=== PATIENT | female | born 1950 | race Two or more races ===

== ENCOUNTER 2016-11-06 19:09 | Inpatient (IN) | payer MEDICAID, MEDICARE ==
[~2016-11-06] VITALS: Ht 165.1 cm; Wt 83.9 kg
--- NOTE | 2016-11-06 19:20 | NUR ---
PT A/OX4 BREATHING EFFORTLESSLY ON ROOM AIR, PT C/O MIDSTERNAL CP X 3 HOURS, PT STATES IT WAS NON PROVOKED, PT WAS GIVEN 162MG OF ASPIRIN BY EMS PRIOR TO ARRIVAL, PT HAS AN IV PLACED PRIOR TO ARRIVAL, EKG DONE, PT ON MONITOR IN NASRAWMD Anselmo MADE AWARE WILL CONTINUE TO MONITOR.
[2016-11-06] MEDS ORDERED: MORPHINE SULFATE INJ 4 MG/ML DISP.SYRIN ONE (19:30)
[2016-11-06] MEDS ORDERED: MORPHINE SULFATE INJ 2 MG/ML DISP.SYRIN IV ONE (19:30)
[2016-11-06] MEDS ORDERED: LABETALOL 20 MG/4 ML VIAL ONE (19:30)
[2016-11-06] MEDS ORDERED: LABETALOL 20 MG/4 ML VIAL IV ONE (19:30)
[2016-11-06] MEDS ORDERED: ONDANSETRON HCL/PF 4 MG/2 ML VIAL ONE (19:39)
--- NOTE | 2016-11-06 19:54 | NUR ---
CALLED NURSING SUP. FOR TELE BED
[2016-11-06] MEDS ORDERED: ONDANSETRON HCL/PF 4 MG/2 ML VIAL IV ONE (20:00)
[2016-11-06 20:07] LABS: BASOPHILS # (AUTO) 0.1 /CMM (0.0-0.2); BASOPHILS % (AUTO) 1.1 % (0.0-2.0); EOSINOPHILS # (AUTO) 0.2 /CMM (0.0-0.7); EOSINOPHILS % (AUTO) 3.9 % (0.0-6.0); HEMATOCRIT 36 % (33-45); HEMOGLOBIN 12.2 g/dL (11.5-14.8); LYMPHOCYTES # (AUTO) 1.4 /CMM (0.8-4.8); LYMPHOCYTES % (AUTO) 22.6 % (20.0-44.0); MEAN CORPUSCULAR HEMOGLOBIN 30 PG (26.0-33.0); MEAN CORPUSCULAR HGB CONC 34 g/dl (31.0-36.0); MEAN CORPUSCULAR VOLUME 87 fL (82-100); MONOCYTES # (AUTO) 0.4 /CMM (0.1-1.30); MONOCYTES % (AUTO) 5.7 % (2.0-12.0); NEUTROPHILS # (AUTO) 4.2 /CMM (1.8-8.9); NEUTROPHILS % (AUTO) 66.7 % (43.0-81.0); PLATELET COUNT (AUTO) 200 /CMM (150-450); RDW COEFFICIENT OF VARIATION 12.9 (11.5-15.0); RED BLOOD CELL COUNT(AUTO) 4.09 MIL/uL (4.0-5.2); WHITE BLOOD COUNT (AUTO) 6.3 K/uL (4.3-11.0)
[2016-11-06 20:21] LABS: CALCIUM, SERUM 8.7 mg/dL (8.5-10.1); CREATININE 1.8 mg/dL (0.6-1.3); POTASSIUM 4.7 mmol/L (3.5-5.1)
[2016-11-06 20:26] LABS: INR 0.9 (0.87-1.13); PROTHROMBIN TIME 9.6 SECS (9.5-12.7)
[2016-11-06 20:28] LABS: ALBUMIN 2.8 g/dL (3.4-5.0); BILIRUBIN,DIRECT 0.1 mg/dL (0.0-0.2); BILIRUBIN,TOTAL 0.1 mg/dL (0.2-1.0); TOTAL PROTEIN, SERUM 6.4 g/dL (6.4-8.2)
[2016-11-06 20:31] LABS: TROPONIN I 0.195 ng/mL (0.00-0.056)
--- NOTE | 2016-11-06 20:45 | NUR ---
EPIC PAGED, BACKPACKERS MANAGER
--- NOTE | 2016-11-06 22:09 | NUR ---
TELE/RN NOTES NEW ADMITTED PATIENT IS A 66 YO FEMALE, BOLIVIAN SPEAKING BUT CAN SPEAK ARABIC, ALERT, ORIENTED X2. ABLE TO VERBALIZE NEEDS, AMBULATORY WITH ASSISTANCE. CAME FROM HOME AND ARRIVED AT THE ER DUE TO REPORTED CHESTPAIN AT 1600 MIDSTERNAL CP X3 WITH ELEVATED HTN OF [phone].WILL CALL MD FOR ORDER AND PROVIDE CARE. ON TELE AT SR. REPORTED B/P AND CHECKED 182/81. COMPLAIN OF CHEST PAIN.
[2016-11-06] MEDS ORDERED: LISI40TA4 PO (22:27)
[2016-11-06] MEDS ORDERED: ACETAMINOPHEN 325 MG TABLET PO PRN (22:30)
[2016-11-06] MEDS ORDERED: ONDANSETRON HCL/PF 4 MG/2 ML VIAL IVP PRN (22:30)
[2016-11-06] MEDS ORDERED: ZOLPIDEM TARTRATE 5 MG TABLET PO PRN (22:30)
[2016-11-06] MEDS ORDERED: MAGNESIUM HYDROXIDE 30 ML UDC PO PRN (22:30)
[2016-11-06] MEDS ORDERED: ENOXAPARIN SODIUM 40 MG/0.4 ML DISP.SYRIN SQ SCH (22:30)
[2016-11-06] MEDS ORDERED: Z GUARD REMEDY 2 OZ OINT TP PRN (22:30)
[2016-11-06] MEDS ORDERED: MAG HYDROX/AL HYDROX/SIMETH 30 ML UDC PO PRN (22:30)
[2016-11-06] MEDS ORDERED: CARV25TA2 PO (22:43)
[2016-11-06] MEDS ORDERED: FLUT1DIS3 IH (22:43)
[2016-11-06] MEDS ORDERED: ASPI81TA2 PO (22:48)
[2016-11-06] MEDS ORDERED: HYDROCODONE/APAP 5/325MG 1 EACH TABLET ONE (23:27)
[2016-11-06] MEDS: HYDROCODONE/APAP 5/325MG 1 EACH TABLET PO PRN (23:35)
--- NOTE | 2016-11-06 23:35 | NUR ---
TELE/RN NOTES PATIENT REPORTED PAIN LEVEL OF 4/10 ON LEFT SIDE OF CHEST. NORCO 5/325 GIVEN. MONITORED FOR EFFECTIVENESS.
[2016-11-06 23:44] VITALS: BP 153/76
[2016-11-07] VITALS (7 sets, daily range): BP systolic 122–157; BP diastolic 58–74
--- NOTE | 2016-11-07 01:22 | NUR ---
TELE/RN NOTES TELE READING AT SINUS BRADYCARDIA 56 WHILE PATIENT IS SLEEPING. NO S/S OF SOB OR DISTRESS. WITH OXYGEN VIA NC AT 2L FOR COMFORT.
[2016-11-07] MEDS ORDERED: MORPHINE SULFATE INJ 2 MG/ML DISP.SYRIN ONE (02:13)
[2016-11-07] MEDS: MORPHINE SULFATE INJ 2 MG/ML DISP.SYRIN IV PRN ×2 (02:20→19:28)
--- NOTE | 2016-11-07 02:29 | NUR ---
TELE/RN NOTES /MD MADE ROUNDS. PATIENT REPORTED PAIN OF 7/10 HEAD PAIN. /CHEST MD ORDER TO GIVE PRN MORPHINE INJ 2MG/1ML. MONITORING FOR EFFECTIVENESS.
[2016-11-07] MEDS ORDERED: LORAZEPAM 0.5 MG TABLET PO PRN (02:30)
--- NOTE | 2016-11-07 03:33 | NUR ---
TELE/RN NOTES RECEIVED CRITICAL LAB RESULT OF TROPONIN AT 0.793. LEFT MESSAGE AND AWAITING FOR MD RETURN CALL.LAB REPORTED BY JAXON.
--- NOTE | 2016-11-07 03:36 | NUR ---
TELE/RN NOTES NO NEW MD ORDER RECEIVED WITH REPORTED CRITICAL LEVEL TROPONIN OF 0.793 LEVEL.
--- NOTE | 2016-11-07 06:11 | NUR ---
TELE/RN CLOSING NOTES PATIENT IN BED. ABLE TO SLEEP 5 TO 6 HOURS. MONITORED FOR PAIN AND ADMINISTERED PAIN MEDICATION. NO S/S OF DISCOMFORT OR DISTRESS OBSERVED AND VERBALIZED. MD MADE ROUNDS. CALL LIGHTS WITHIN REACH. PROVIDE FLUIDS. TELE READING WHILE ASLEEP AT SINUS HANH IN 50'S. ON 2 L OXYGEN VIA NC. WILL ENDORSE TO AM RN FOR CAPO.
--- NOTE | 2016-11-07 07:49 | NUR ---
AM RN NOTES RECEIVED PT IN STABLE CONDITION, SLEEPING COMFORTABLY EASY TO AWAKE, NO SOB OR DISTRESS NOTED, NO PAIN OR DISCOMFORT AT THIS TIME, WILL MONITOR.
[2016-11-07] MEDS: FLUTICASONE/SALMETEROL DISKUS IH SCH ×2 (08:33→16:33)
[2016-11-07] MEDS: PANTOPRAZOLE 40 MG TABLET.DR PO SCH (08:34)
[2016-11-07] MEDS: NICOTINE PATCH (21MG) 21 MG PATCH.TD24 TD SCH (08:34)
[2016-11-07] MEDS: ASPIRIN 81 MG TAB.CHEW PO SCH (08:34)
[2016-11-07] MEDS: CARVEDILOL 12.5 MG TABLET PO SCH ×2 (08:35→16:33)
[2016-11-07] MEDS ORDERED: LISINOPRIL (20MG) 20 MG TABLET PO SCH (09:00)
[2016-11-07 09:10] LABS: BASOPHILS # (AUTO) 0.1 /CMM (0.0-0.2); BASOPHILS % (AUTO) 1.1 % (0.0-2.0); EOSINOPHILS # (AUTO) 0.2 /CMM (0.0-0.7); EOSINOPHILS % (AUTO) 4.2 % (0.0-6.0); HEMATOCRIT 33 % (33-45); HEMOGLOBIN 11.1 g/dL (11.5-14.8); LYMPHOCYTES # (AUTO) 1.8 /CMM (0.8-4.8); LYMPHOCYTES % (AUTO) 30.6 % (20.0-44.0); MEAN CORPUSCULAR HEMOGLOBIN 29 PG (26.0-33.0); MEAN CORPUSCULAR HGB CONC 33 g/dl (31.0-36.0); MEAN CORPUSCULAR VOLUME 88 fL (82-100); MONOCYTES # (AUTO) 0.4 /CMM (0.1-1.30); MONOCYTES % (AUTO) 6.4 % (2.0-12.0); NEUTROPHILS # (AUTO) 3.3 /CMM (1.8-8.9); NEUTROPHILS % (AUTO) 57.7 % (43.0-81.0); PLATELET COUNT (AUTO) 192 /CMM (150-450); RDW COEFFICIENT OF VARIATION 13.5 (11.5-15.0); RED BLOOD CELL COUNT(AUTO) 3.81 MIL/uL (4.0-5.2); WHITE BLOOD COUNT (AUTO) 5.7 K/uL (4.3-11.0)
[2016-11-07 09:30] LABS: CALCIUM, SERUM 8.2 mg/dL (8.5-10.1); CREATININE 1.8 mg/dL (0.6-1.3); MAGNESIUM 1.7 mg/dL (1.8-2.4); POTASSIUM 4.8 mmol/L (3.5-5.1)
[2016-11-07] MEDS: ATORVASTATIN 10 MG TABLET PO SCH (09:36)
[2016-11-07] MEDS: ENOXAPARIN SODIUM 80 MG/0.8 ML DISP.SYRIN SQ SCH (09:42)
[2016-11-07] MEDS: HYDROCODONE/APAP 5/325MG 1 EACH TABLET PO PRN ×2 (09:45→14:13)
[2016-11-07 09:51] LABS: THYROID STIMULATING HORMONE 1.674 uIU/mL (0.358-3.74)
[2016-11-07] MEDS ORDERED: IV NS 0.9% 1,000 ML IV ONE (10:30)
[2016-11-07] MEDS ORDERED: IV SET PRIMARY PUMP SET 1 EA INFUS.SET MC ONE (10:53)
[2016-11-07] MEDS: ACETYLCYSTEINE 20% ORAL SOLN 6,000 MG/30 ML VIAL PO SCH ×2 (10:58→20:41)
[2016-11-07] MEDS ORDERED: Magnesium 1GM/D5W 100ML PREMIX 100 ML IV SCH (13:30)
[2016-11-07] MEDS ORDERED: SECONDARY IV SET 1 EA INFUS.SET MC ONE (14:05)
--- NOTE | 2016-11-07 18:38 | NUR ---
PT IN STABLE CONDITION, NO CHANGES NOTED, PAIN MEDICATIONS WITH HELP, AMBULATES TO RESTROOM, VISITED BY FAMILY WILL CONTINUE TO MONITOR. Addendum: 11/07/16 at 1842 by JOANIE PETERSON RN POSSIBLE CARDIAC CATH, SLOPE HOIST OPERATOR AWARE, AWAITING FOR TRANSFER TO ACUTE HOSPITAL.
[2016-11-07] MEDS ORDERED: ENOXAPARIN SODIUM 30 MG/0.3 ML DISP.SYRIN SQ SCH (21:00)
--- NOTE | 2016-11-07 22:32 | NUR ---
PT IN STABLE CONDITION, SLEEPING COMFORTABLY, NO SOB OR DISTRESS NOTED, PAIN MEDICATIONS WITH HELP, WILL INDORSE TO NEXT SHIFT FOR CAPO.
--- NOTE | 2016-11-07 22:45 | NUR ---
TELE/RN NOTES PT RECIEVED, A/OX4, RESTING COMFORTABLY. NO SOB OR DISTRESS NOTED OR COMPLAINTS OF PAIN AT THIS TIME. ON ROOM AIR, BREATHING EVEN AND UNLABORED. IV TO LEFT AC PATENT AND INTACT. WILL CONTINUE TO MONITOR
[2016-11-08] VITALS: BP 153/73
[2016-11-08] MEDS: MORPHINE SULFATE INJ 2 MG/ML DISP.SYRIN IV PRN ×3 (00:03→13:14)
[2016-11-08] MEDS: HYDROCODONE/APAP 5/325MG 1 EACH TABLET PO PRN (02:32)
[2016-11-08 04:00] VITALS: BP 168/78
--- NOTE | 2016-11-08 04:10 | NUR ---
TELE/RN NOTES HG=942/78 HR=67 R=18 O2=97% ON 2LPM NC TEMP=98.1F WILL CONTINUE TO MONITOR
--- NOTE | 2016-11-08 04:10 | NUR ---
TELE/RN NOTES PT EXTREMELY ANXIOUS AND COMPLAINING OF CHEST PAIN 03/10 WITH SOB. GRASPING CHEST, MOANING AND CRYING, SITTING AT THE EDGE OF THE BED, STATING "I CANNOT TAKE THIS ANYMORE, I AM SUFFERING". PT PLACE ON 02 2LPM VIA NC, PRN MORPHINE 2MG IV ADMINISTERED. PRN ATIVAN 0.5MG PO WAS GIVEN AT 0315. STAT EKG WAS ORDERED PER TRANSIT OPERATIONS SUPERVISOR. RESULTS REMAINED THE SAME FROM PREVIOUS EKG DONE ON 11/06/16. WILL CONTINUE TO MONITOR
--- NOTE | 2016-11-08 05:00 | NUR ---
TELE/RN NOTES PT ASLEEP, SITTING HIGH FOWLERS BECAUSE SHE SAYS IT HELPS WITH THE PAIN. BREATHING EVEN AND UNLABORED. NO S/S OF DISTRESS. 2LPM 02 VIA NC REMAINS ON.
[2016-11-08] MEDS: hydrALAZINE HCL 25 MG TABLET PO PRN ×2 (06:20→13:12)
--- NOTE | 2016-11-08 06:24 | NUR ---
TELE/RN NOTES RECHECKED YA=740/80, HR=67 ADMINISTERED PRN APRESOLINE 25MG PO. WILL CONTINUE TO MONITOR
[2016-11-08 06:47] LABS: BASOPHILS # (AUTO) 0.1 /CMM (0.0-0.2); BASOPHILS % (AUTO) 0.6 % (0.0-2.0); EOSINOPHILS # (AUTO) 0.1 /CMM (0.0-0.7); HEMATOCRIT 36 % (33-45); HEMOGLOBIN 12.2 g/dL (11.5-14.8); LYMPHOCYTES # (AUTO) 0.9 /CMM (0.8-4.8); LYMPHOCYTES % (AUTO) 11.4 % (20.0-44.0); MEAN CORPUSCULAR HEMOGLOBIN 29 PG (26.0-33.0); MEAN CORPUSCULAR HGB CONC 33 g/dl (31.0-36.0); MEAN CORPUSCULAR VOLUME 88 fL (82-100); MONOCYTES # (AUTO) 0.4 /CMM (0.1-1.30); MONOCYTES % (AUTO) 5.2 % (2.0-12.0); NEUTROPHILS # (AUTO) 6.4 /CMM (1.8-8.9); NEUTROPHILS % (AUTO) 81.8 % (43.0-81.0); PLATELET COUNT (AUTO) 204 /CMM (150-450); RDW COEFFICIENT OF VARIATION 13.9 (11.5-15.0); RED BLOOD CELL COUNT(AUTO) 4.14 MIL/uL (4.0-5.2); WHITE BLOOD COUNT (AUTO) 7.8 K/uL (4.3-11.0)
--- NOTE | 2016-11-08 07:10 | NUR ---
FARO DEALER NOTES RECEIVED PATIENT IN BED, AWAKE. A/O X3. ON OXYGEN AT 2L/MIN VIA NC, NO SOB NOTED. ON TELE MONITOR SINUS RHYTHM WITH BBB, PVC HR 77, DENIES CHEST PAIN. APPEARS COMFORTABLE IN BED. IV IN LEFT AC G20 PATENT AND INTACT, FLUSHES WELL. CALL LIGHT WITHIN REACH. WILL CONT TO MONITOR. PATIENT TO BE TRANSFERRED TODAY TO ANOTHER ACUTE HOSP FOR CARDIAC CATH PER REPORT.
[2016-11-08 07:16] LABS: ALBUMIN 2.9 g/dL (3.4-5.0); BILIRUBIN,TOTAL 0.3 mg/dL (0.2-1.0); CALCIUM, SERUM 8.6 mg/dL (8.5-10.1); CREATININE 1.8 mg/dL (0.6-1.3); MAGNESIUM 2.1 mg/dL (1.8-2.4); POTASSIUM 5.6 mmol/L (3.5-5.1); TOTAL PROTEIN, SERUM 6.6 g/dL (6.4-8.2)
--- NOTE | 2016-11-08 07:42 | NUR ---
TELE/RN CLOSING NOTES PT RESTING COMFORTABLY IN BED, HOB ELEVATED. EASILY AROUSABLE TO NAME. ON 2LPM O2 VIA NC, NO SOB OR DISTRESS NOTED. NO S/S OF PAIN AT THIS TIME. ON TELE MONITOR, SINUS RHYTHM WITH BBB AND PVC'S HR AT 65. MADE PT COMFORTABLE POSSIBLE THROUGHOUT SHIFT. ALL NEEDS MET AND ATTENDED TO. PT REALLY WANTS TO GO TO [facility] TODAY FOR CARDIAC CATH. STATED THAT SHE CAN NO LONGER TAKE THE PAIN. BED IN LOW/LOCKED POSITION WITH CALL LIGHT IN REACH. BED RAILS UPX2. ENDORSED TO AM SHIFT CAPO.
[2016-11-08 08:00] VITALS: BP 153/73
[2016-11-08 08:32] LABS: TROPONIN I 5.915 ng/mL (0.00-0.056)
[2016-11-08] MEDS: PANTOPRAZOLE 40 MG TABLET.DR PO SCH (08:36)
[2016-11-08] MEDS: ATORVASTATIN 10 MG TABLET PO SCH (08:36)
[2016-11-08] MEDS: NICOTINE PATCH (21MG) 21 MG PATCH.TD24 TD SCH (08:36)
[2016-11-08] MEDS: ASPIRIN 81 MG TAB.CHEW PO SCH (08:36)
[2016-11-08] MEDS: CARVEDILOL 12.5 MG TABLET PO SCH (08:37)
[2016-11-08] MEDS: FLUTICASONE/SALMETEROL DISKUS IH SCH (08:42)
[2016-11-08] MEDS: ENOXAPARIN SODIUM 80 MG/0.8 ML DISP.SYRIN SQ SCH (09:08)
[2016-11-08] MEDS ORDERED: IV NS 0.9% 1,000 ML IV PRN (09:24)
[2016-11-08] MEDS ORDERED: NITROGLYCERIN 30 GM TUBE TP SCH (09:30)
--- NOTE | 2016-11-08 09:30 | NUR ---
PATIENT LISTED ALLERGIES TO NITROGLYCERIN. PER PATIENT SHE PASSED OUT WHEN SHE TOOK NITROGLYCERIN LONG TIME AGO. RELAYED AND SPOKE TO DR. SCHNEIDER, CLARIFIED THE ORDERS. PER MD NITRO-BID OINTMENT LOWERS BLOOD PRESSURE AND CAN GIVE IT TO THE PATIENT. CALLED PHARMACY SPOKE TO MARGARITOLY TO INFORMED.
[2016-11-08] MEDS ORDERED: Hydralazine Hcl PO (09:33)
[2016-11-08] MEDS ORDERED: Lorazepam PO (09:33)
[2016-11-08] MEDS ORDERED: ENOX80DI SQ (09:33)
[2016-11-08] MEDS ORDERED: NICO1PAT28 TD (09:33)
[2016-11-08] MEDS ORDERED: ATOR10TA PO (09:33)
--- NOTE | 2016-11-08 10:27 | NUR ---
RECEIVED PHONE CALL FROM DR. CHOWDHURY, PER MD TO TRANSFER PATIENT UNDER HIS CARE. INFORMED CHARGE NURSE. REVIEWED LAB RESULT WITH DR. CHOWDHURY, ORDERED TO INCREASE IVF NS TO 100ML/HR, KAYAXALATE 60GM PO X1 FOR ELEVATED POTASSIUM, AND CHECK POTASSIUM LEVEL AT 2PM NOTED AND ACKNOWLEDGED.
[2016-11-08] MEDS: hydrALAZINE HCL 50 MG TABLET PO SCH ×2 (10:38→13:17)
[2016-11-08] MEDS ORDERED: SODIUM POLYSTYRENE SULFONATE 15 G/60 ML BOTTLE PO ONE (11:00)
--- NOTE | 2016-11-08 11:30 | NUR ---
PATIENT IS SEEN BY DR. CHOWDHURY TODAY, PER MD TO REMAIN IVF NS AT 25ML/HR.
--- NOTE | 2016-11-08 12:16 | NUR ---
REVIEWED VACCINATIONS STATUS WITH THE PATIENT. PER PATIENT SHE DID NOT RECEIVED FLU AND PNA VACCINES, AND PREFERS NOT TO HAVE IT. VACCINATIONS STATUS UPDATED.
--- NOTE | 2016-11-08 12:24 | NUR ---
KAYEXALATE NOT AVAILABLE AT THIS TIME. CALLED PHARMACY, WILL FOLLOW UP.
[2016-11-08 13:17] VITALS: BP 165/75
--- NOTE | 2016-11-08 13:24 | NUR ---
CALLED PHARMACY SPOKE TO YRIS, KAYEXALATE STILL NOT AVAILABLE. NON ADMINISTERED, PATIENT LEAVING HOSP FOR TRANSFER TO ANOTHER ACUTE HOSP FOR CARDIAC CATH.
--- NOTE | 2016-11-08 13:30 | NUR ---
CLINICAL LAB CLERK DISCHARGED PATENT HAS BEEN CLEARED FOR DISCHARGE/TRANSFERRED TO ANOTHER ACUTE HOSP BY MD AND MANAGER POOL. DISCHARGE INSTRUCTION GIVEN TO THE PATIENT, VERBALIZED UNDERSTANDING. SKIN INTACT. CALLED SPOKE TO [facility] FOR REPORT. PATIENT LEFT [facility] IN STABLE CONDITION VIA AMBULANCE. DAUGHTEREDMUND WAS INFORMED.
== END 2016-11-08 13:28 | disposition short-term general hospital (02) | DRG 190 ==
LOC: ER 19:14 → TELE 21:33
PROVIDERS: ADMIT Internal Medicine; ATTEND Internal Medicine
DX: I21.4 Non-ST elevation (NSTEMI) myocardial infarction (principal); N17.0 Acute kidney failure with tubular necrosis; I50.33 Acute on chronic diastolic (congestive) heart failure; E44.0 Moderate protein-calorie malnutrition; I13.0 Hypertensive heart and chronic kidney disease with heart failure and stage 1 through stage 4 chronic kidney disease, or unspecified chronic kidney disease; I25.10 Atherosclerotic heart disease of native coronary artery without angina pectoris; N18.9 Chronic kidney disease, unspecified; I16.0 Hypertensive urgency; D64.9 Anemia, unspecified; E66.9 Obesity, unspecified; E78.5 Hyperlipidemia, unspecified; E83.39 Other disorders of phosphorus metabolism; E87.5 Hyperkalemia; F17.200 Nicotine dependence, unspecified, uncomplicated; Z95.1 Presence of aortocoronary bypass graft; J44.9 Chronic obstructive pulmonary disease, unspecified; K21.9 Gastro-esophageal reflux disease without esophagitis; R73.9 Hyperglycemia, unspecified; Z68.30 Body mass index [BMI] 30.0-30.9, adult
CPT/HCPCS: 36415; 71010-TC; 76770-TC; 80048-TC; 80053-TC; 80061-TC; 80076-TC; 83735-TC; 84100-TC; 84439-TC; 84443-TC; 84484-TC; 85025-TC; 85730-TC; 86850-TC; 87081-TC; 93307-TC; 97001-TC; A4606; J1650; J2270; J2405; J3475; J3490; J7030; Z7610

== ENCOUNTER 2017-08-25 18:31 | Inpatient (IN) | payer MEDICAID, MEDICARE ==
[~2017-08-25] VITALS: Ht 165.1 cm; Wt 90.7 kg
[~2017-08-25 18:31] MED LIST: ASPI-1169 PO; ATOR10TA PO; CARV25TA2 PO; ENOX80DI SQ; FLUT1DIS3 IH; Hydralazine Hcl PO; LISI40TA4 PO; Lorazepam PO; NICO1PAT28 TD
--- NOTE | 2017-08-25 18:41 | NUR ---
DR CLEMENTE AT BEDSIDE FOR EVAL.
--- NOTE | 2017-08-25 18:53 | NUR ---
IV LINE STARTED BLOOD DRAWN AND SENT TO LAB.
[2017-08-25 18:59] LABS: HEMATOCRIT 30 % (33-45); HEMOGLOBIN 10.4 g/dL (11.5-14.8); MEAN CORPUSCULAR HEMOGLOBIN 32 PG (26.0-33.0); MEAN CORPUSCULAR HGB CONC 35 g/dl (31.0-36.0); MEAN CORPUSCULAR VOLUME 92 fL (82-100); PLATELET COUNT (AUTO) 208 /CMM (150-450); RED BLOOD CELL COUNT(AUTO) 3.28 MIL/uL (4.0-5.2); WHITE BLOOD COUNT (AUTO) 7.5 K/uL (4.3-11.0)
[2017-08-25] MEDS ORDERED: IPRATROPIUM NEB FS 0.5 MG/2.5 ML AMPUL.NEB NEB ONE (19:00)
[2017-08-25] MEDS ORDERED: ALBUTEROL FS 2.5 MG/0.5 ML VIAL.NEB NEB ONE (19:00)
[2017-08-25 19:13] LABS: CALCIUM, SERUM 8.8 mg/dL (8.5-10.1); CREATININE 3.5 mg/dL (0.6-1.3); POTASSIUM 5.4 mmol/L (3.5-5.1)
[2017-08-25 19:15] LABS: INR 0.88 (0.85-1.15)
[2017-08-25 19:19] LABS: ALBUMIN 2.6 g/dL (3.4-5.0); BILIRUBIN,TOTAL 0.3 mg/dL (0.2-1.0); TOTAL PROTEIN, SERUM 6.6 g/dL (6.4-8.2); TROPONIN I 0.086 ng/mL (0.00-0.056)
[2017-08-25] MEDS ORDERED: IPRATROPIUM NEB FS 0.5 MG/2.5 ML AMPUL.NEB ONE (19:20)
[2017-08-25] MEDS ORDERED: ALBUTEROL FS 2.5 MG/0.5 ML VIAL.NEB ONE (19:20)
[2017-08-25] MEDS ORDERED: ASPIRIN 325 MG TABLET PO ONE (19:30)
[2017-08-25] MEDS ORDERED: IV NS 0.9% 500 ML IV ONE (19:30)
--- NOTE | 2017-08-25 19:30 | NUR ---
RT AT BEDSIDE FOR BREATHING TREATMENT.
[2017-08-25] MEDS ORDERED: ASPIRIN 325 MG TABLET ONE (19:35)
--- NOTE | 2017-08-25 19:37 | NUR ---
CALLED DR CHOWDHURY, ON THE PHONE WITH DR CLEMENTE.
[2017-08-25 19:47] LABS: BAND % (MANUAL) 9 % (0.0-5.0); LYMPHOCYTES % (MANUAL) 13 % (16-48); MONOCYTES % (MANUAL) 6 % (0-11.0); NEUTROPHILS % (MANUAL) 72 (42-76)
--- NOTE | 2017-08-25 20:27 | NUR ---
REPORT GIVEN TO JAZMINE. PT AWAITING TRANSFER TO FLOOR.
[2017-08-25 21:30] VITALS: BP 106/69
--- NOTE | 2017-08-25 21:30 | NUR ---
RN OPENING NOTES RECEIVED PATIENT FORM ER IN STABLE CONDITION, ALERT AND ORIENTED X4, FILIPINO SPEAKING. VS STABLE. NO C/O PAIN OR DISCOMFORT AT THIS TIME. NO SOB NOTED. RESPIRATIONS EVEN AND UNLABORED. BS X4. IV ACCESS ON RIGHT AC 20 G PATENT AND INTACT, NO REDNESS OR INFILTRATION NOTED. TELE MONITOR IS IN PLACE, SR 65 BPM. SKIN CLEAN AND DRY. BED IN LOW AND LOCKED POSITION, SIDE RAILSX2. CALL LIGHT WITHIN EASY REACH. WILL CONTINUE TO MONITOR AND ASSESS DURING THE SHIFT.
[2017-08-25 22:00] VITALS: BP 108/69
[2017-08-25] MEDS ORDERED: HEPARIN SODIUM, PORCINE 5000 UNITS/1 ML VIAL ONE (22:27)
[2017-08-25] MEDS ORDERED: ONDANSETRON HCL/PF 4 MG/2 ML VIAL IV PRN (22:30)
[2017-08-25] MEDS ORDERED: ACETAMINOPHEN 325 MG TABLET PO PRN (22:30)
[2017-08-25] MEDS: IV 1/2NS 1000 ML 1,000 ML IV SCH (22:52)
[2017-08-25] MEDS: HEPARIN SODIUM, PORCINE 5000 UNITS/1 ML VIAL SQ SCH (23:01)
[2017-08-25] MEDS ORDERED: ACETAMINOPHEN 325 MG TABLET ONE (23:55)
[2017-08-26] VITALS (7 sets, daily range): BP systolic 106–139; BP diastolic 56–72
[2017-08-26] MEDS ORDERED: ISOS60TA4 PO (05:01)
[2017-08-26] MEDS ORDERED: CLOP75TA15 PO (05:01)
[2017-08-26] MEDS ORDERED: FURO-144 PO (05:01)
[2017-08-26] MEDS ORDERED: POTA20TA83 PO (05:01)
--- NOTE | 2017-08-26 06:38 | NUR ---
RN CLOSING NOTES PATIENT IS SLEEPING IN BED, EASY TO AROUSE, ALERT AND ORIENTED X4, GERMAN SPEAKING. VS STABLE. NO SOB NOTED. RESPIRATIONS EVEN AND UNLABORED. IV ACCESS ON RIGHT AC 20 G PATENT AND INTACT, INFUSING 1/2 NS AT 75 ML/HR, NO REDNESS OR INFILTRATION NOTED. TELE MONITOR IS IN PLACE, SR 67 BPM. SKIN CLEAN AND DRY. ALL NEEDS ARE MET AND MEDICATIONS GIVEN PER MD ORDER. BED IN LOW AND LOCKED POSITION, SIDE RAILSX2. CALL LIGHT WITHIN EASY REACH. WILL ENDORSE TO RN DAY SHIFT FOR CAPO.
[2017-08-26 06:45] LABS: BASOPHILS % (AUTO) 0.6 % (0.0-2.0); EOSINOPHILS # (AUTO) 0.1 /CMM (0.0-0.7); EOSINOPHILS % (AUTO) 1.7 % (0.0-6.0); HEMATOCRIT 26 % (33-45); HEMOGLOBIN 8.9 g/dL (11.5-14.8); LYMPHOCYTES # (AUTO) 1.4 /CMM (0.8-4.8); LYMPHOCYTES % (AUTO) 24.4 % (20.0-44.0); MEAN CORPUSCULAR HEMOGLOBIN 32 PG (26.0-33.0); MEAN CORPUSCULAR HGB CONC 34 g/dl (31.0-36.0); MEAN CORPUSCULAR VOLUME 93 fL (82-100); MONOCYTES # (AUTO) 0.5 /CMM (0.1-1.30); MONOCYTES % (AUTO) 8.6 % (2.0-12.0); NEUTROPHILS # (AUTO) 3.8 /CMM (1.8-8.9); NEUTROPHILS % (AUTO) 64.7 % (43.0-81.0); PLATELET COUNT (AUTO) 159 /CMM (150-450); RDW COEFFICIENT OF VARIATION 14.6 (11.5-15.0); RED BLOOD CELL COUNT(AUTO) 2.79 MIL/uL (4.0-5.2); WHITE BLOOD COUNT (AUTO) 5.8 K/uL (4.3-11.0)
[2017-08-26 07:01] LABS: CREATININE 3.2 mg/dL (0.6-1.3); POTASSIUM 5.2 mmol/L (3.5-5.1)
[2017-08-26 07:18] LABS: THYROID STIMULATING HORMONE 0.387 uIU/mL (0.358-3.74)
[2017-08-26 07:53] LABS: TROPONIN I 0.103 ng/mL (0.00-0.056)
[2017-08-26] MEDS: PANTOPRAZOLE 40 MG TABLET.DR PO SCH (07:58)
--- NOTE | 2017-08-26 08:00 | NUR ---
RN NOTES RECEIVED PATIENT IN THE BED A/O X4, PATIENT ON TELE MONITOR SR-60, V/S STABLE, PATIENT C/O STOMACHACHE, IV LINE ON RIGHT AC1/2 NS AT 75 ML/HR, ENCOURAGED TO EXPRESS FEELINGS AND CONCERNS, V/S STABLE, CALL LIGHT WITHIN TO REACH, MED COMPLIANT, CONTINUED MONITORING.
[2017-08-26] MEDS ORDERED: RANO500T3 PO (09:17)
[2017-08-26] MEDS ORDERED: ALBU2.5V38 IH (09:17)
[2017-08-26] MEDS ORDERED: EVOL140S SQ (09:23)
[2017-08-26] MEDS: CLOPIDOGREL BISULFATE 75 MG TABLET PO SCH (09:42)
[2017-08-26] MEDS: CARVEDILOL 6.25 MG TABLET PO SCH ×2 (09:43→21:49)
[2017-08-26] MEDS: HEPARIN SODIUM, PORCINE 5000 UNITS/1 ML VIAL SQ SCH ×2 (09:45→21:51)
--- NOTE | 2017-08-26 10:00 | NUR ---
RN NOTES PATIENT IN THE BED RESTING, INFUSING 1/2 NS AT 75 ML/HR, CALL LIGHT WITHIN TO REACH, PATIENT REFUSED DIZZINESS AT THIS TIME, SAFETY PRECAUTION MAINTAINED ALL THE TIME, CALL LIGHT WITHIN TO REACH, CONTINUED MONITORING.
[2017-08-26 11:08] LABS: MAGNESIUM 2.1 mg/dL (1.8-2.4); PHOSPHORUS 4.3 mg/dL (2.5-4.9)
[2017-08-26] MEDS: IV 1/2NS 1000 ML 1,000 ML IV SCH (12:55)
[2017-08-26] MEDS: MECLIZINE HCL 12.5 MG TABLET PO SCH ×2 (12:55→21:48)
--- NOTE | 2017-08-26 14:57 | NUR ---
RN NOTES NA ACUTE RESPIRATORY DISTRESS, SCHEDULED MEDICATION ADMINISTERED, ASSIST PATIENT BATHROOM, SAFETY PRECAUTION MAINTAINED WITH HELP OF ASBESTOS ABATEMENT TECHNICIAN.
--- NOTE | 2017-08-26 17:52 | NUR ---
Met with patient, she is alert, she lives alone locally in a [address]. She is ambulatory and independent with adl's. She is dependent on oxygen at home and has nebulizer due to hx of COPD. She has [facility] patient accounts specialist/provider 92hrs/month. Patient pcp is , hospital personnel director is Dr. Hoffmann both are in [place]. Patient friend or caregiver will provide ride home once discharge. Addendum: 08/26/17 at 1752 by ANALI CHO RN Amended: Links added.
[2017-08-26] MEDS: GUAIFENESIN/CODEINE 10 ML UDC PO PRN ×2 (18:40→23:58)
--- NOTE | 2017-08-26 18:40 | NUR ---
RN NOTES ADMINISTERED ROBITUSSIN 5 ML PO PRN FOR COUGH, , INFUSING 1/2 NS AT 75 ML/HR INTACT, PATIENT HAS NO RESPIRATORY DISTRESS, NO C/O PAIN AT THIS TIME, NO DIZZINESS, CALL LIGHT WITHIN TO REACH, SAFETY PRECAUTION MAINTAINED ALL THE TIME. ENDORSED ONCOMING NURSE CAPO.
--- NOTE | 2017-08-26 19:30 | NUR ---
TELERN FULLY AWAKE, NO DISCOMFORTS, STATED NO DIZZINESS AT THIS TIME. NO NEEDS ATTENDED, CLOSELY WATCHED.SR ON THE MONITOR.
--- NOTE | 2017-08-26 21:30 | NUR ---
TELERN AMBULATORY BRP, VOIDED FREELY. IVF CONTINUED, DUE MEDS ADMINISTERED. DENIES DIZZINESS, NO OTHER DISCOMFORTS MADE.
[2017-08-27] VITALS: BP 112/59
[2017-08-27 00:30] VITALS: BP 112/59
--- NOTE | 2017-08-27 00:59 | NUR ---
TELERN UNABLE TO SLEEP, REQUESTED AMBIEN 10MG PO. PLACED CALL TO DR. CHOWDHURY.
--- NOTE | 2017-08-27 01:03 | NUR ---
TELERN RETURN CALL FROM DR. CHOWDHURY, ORDERS RECEIVED.
[2017-08-27] MEDS ORDERED: ZOLPIDEM TARTRATE 10 MG TABLET ONE (01:05)
[2017-08-27] MEDS ORDERED: ZOLPIDEM TARTRATE 10 MG TABLET PO PRN (01:30)
[2017-08-27 04:00] VITALS: BP 102/59
[2017-08-27 04:25] VITALS: BP 102/59
--- NOTE | 2017-08-27 06:30 | NUR ---
[facility]ELERN [facility] WE[facility] FROM [facility]. NO OTHER COMPLAINTS MADE.
[2017-08-27] MEDS: MECLIZINE HCL 12.5 MG TABLET PO SCH ×2 (06:41→13:34)
[2017-08-27] MEDS: IV 1/2NS 1000 ML 1,000 ML IV SCH (06:41)
[2017-08-27 07:17] LABS: BASOPHILS % (AUTO) 0.5 % (0.0-2.0); EOSINOPHILS # (AUTO) 0.1 /CMM (0.0-0.7); EOSINOPHILS % (AUTO) 2.4 % (0.0-6.0); HEMATOCRIT 26 % (33-45); HEMOGLOBIN 9.1 g/dL (11.5-14.8); LYMPHOCYTES # (AUTO) 1.6 /CMM (0.8-4.8); LYMPHOCYTES % (AUTO) 28.9 % (20.0-44.0); MEAN CORPUSCULAR HEMOGLOBIN 32 PG (26.0-33.0); MEAN CORPUSCULAR HGB CONC 35 g/dl (31.0-36.0); MEAN CORPUSCULAR VOLUME 93 fL (82-100); MONOCYTES # (AUTO) 0.5 /CMM (0.1-1.30); MONOCYTES % (AUTO) 9.4 % (2.0-12.0); NEUTROPHILS # (AUTO) 3.2 /CMM (1.8-8.9); NEUTROPHILS % (AUTO) 58.8 % (43.0-81.0); PLATELET COUNT (AUTO) 178 /CMM (150-450); RDW COEFFICIENT OF VARIATION 14.4 (11.5-15.0); RED BLOOD CELL COUNT(AUTO) 2.83 MIL/uL (4.0-5.2); WHITE BLOOD COUNT (AUTO) 5.5 K/uL (4.3-11.0)
--- NOTE | 2017-08-27 07:30 | NUR ---
CUSTOMER EXPERIENCE STRATEGIST NOTES RECEIVED PATIENT IN BED EYES CLOSED, RESPONSIVE VERBAL STIMULI. NO SOB NOTED. NO ACUTE DISTRESS NOTED. BREATHING UNLABORED. IV ACCESS PATENT AND INTACT. NO REDNESS OR SWELLING NOTED. SAFETY MEASURES IN PLACE. CALL LIGHT WITHIN REACH. WILL CONTINUE TO MONITOR ACCORDINGLY.
[2017-08-27 07:35] LABS: ALBUMIN 2.2 g/dL (3.4-5.0); BILIRUBIN,TOTAL 0.2 mg/dL (0.2-1.0); CALCIUM, SERUM 8.2 mg/dL (8.5-10.1); CREATININE 2.4 mg/dL (0.6-1.3); MAGNESIUM 1.9 mg/dL (1.8-2.4); PHOSPHORUS 3.6 mg/dL (2.5-4.9); POTASSIUM 5.1 mmol/L (3.5-5.1); TOTAL PROTEIN, SERUM 5.6 g/dL (6.4-8.2)
[2017-08-27 07:43] LABS: TROPONIN I 0.123 ng/mL (0.00-0.056)
[2017-08-27 08:00] VITALS: BP 115/62
[2017-08-27] MEDS: PANTOPRAZOLE 40 MG TABLET.DR PO SCH (08:14)
[2017-08-27] MEDS ORDERED: ASPIRIN 81 MG TAB.CHEW PO SCH (09:00)
[2017-08-27 09:04] VITALS: BP 115/62
[2017-08-27] MEDS: CLOPIDOGREL BISULFATE 75 MG TABLET PO SCH (09:04)
[2017-08-27] MEDS: CARVEDILOL 6.25 MG TABLET PO SCH (09:04)
[2017-08-27] MEDS: HEPARIN SODIUM, PORCINE 5000 UNITS/1 ML VIAL SQ SCH (09:05)
[2017-08-27] MEDS ORDERED: PANT40TA2 PO (10:36)
[2017-08-27] MEDS ORDERED: MECL12.582 PO (10:36)
--- NOTE | 2017-08-27 11:00 | NUR ---
RN NOTES SEEN AND EVALUATED BY DR CHOWDHURY WITH NEW ORDERS MADE. NOTED AND CARRIED OUT.
[2017-08-27] MEDS: GUAIFENESIN/CODEINE 10 ML UDC PO PRN (13:35)
--- NOTE | 2017-08-27 15:45 | NUR ---
MEDICAL TERRITORY MANAGER NOTES PATIENT DISCHARGED WITH STABLE VS. NO SOB NOTED. NO SIGN OF ACUTE DISTRESS NOTED. BREATHING UNLABORED. ALL DISCHARGE INSTRUCTIONS GIVEN INCLUDING FOLLOW UP WITH MD AND NEW PRESCRIPTIONS, VERBALIZED UNDERSTANDING. ALL BELONGINGS ACCOUNTED FOR INCLUDING HOME MEDICATIONS GIVEN TO THE PATIENT. IV ACCESS REMOVED ON THE LEFT WRIST, NO BLEEDING OR SWELLING NOTED. PICKED UP BY THE DAUGHTER VIA PRIVATE CAR , WHEELED TO THE LOBBY ACCOMPANIED BY RN AND PREDATORY HUNTER ASSISTED TO THE CAR.
== END 2017-08-27 15:45 | disposition home or self-care (01) | DRG 111 ==
LOC: ER 18:39 → TELE 20:46 → MED 08-27 10:48
PROVIDERS: ADMIT Internal Medicine; ATTEND Internal Medicine
DX: H81.399 Other peripheral vertigo, unspecified ear (principal); I21.4 Non-ST elevation (NSTEMI) myocardial infarction; N17.0 Acute kidney failure with tubular necrosis; I50.9 Heart failure, unspecified; I13.0 Hypertensive heart and chronic kidney disease with heart failure and stage 1 through stage 4 chronic kidney disease, or unspecified chronic kidney disease; E44.0 Moderate protein-calorie malnutrition; N18.4 Chronic kidney disease, stage 4 (severe); E87.5 Hyperkalemia; Z95.1 Presence of aortocoronary bypass graft; I12.9 Hypertensive chronic kidney disease with stage 1 through stage 4 chronic kidney disease, or unspecified chronic kidney disease; I25.10 Atherosclerotic heart disease of native coronary artery without angina pectoris; Z87.891 Personal history of nicotine dependence; Z79.899 Other long term (current) drug therapy; Z79.82 Long term (current) use of aspirin; Z88.8 Allergy status to other drugs, medicaments and biological substances; Z79.01 Long term (current) use of anticoagulants; Z98.61 Coronary angioplasty status; H02.60 Xanthelasma of unspecified eye, unspecified eyelid; E78.5 Hyperlipidemia, unspecified; D63.1 Anemia in chronic kidney disease; I25.2 Old myocardial infarction; J44.9 Chronic obstructive pulmonary disease, unspecified; K21.9 Gastro-esophageal reflux disease without esophagitis
CPT/HCPCS: 36415; 71045-TC; 80048-TC; 80053-TC; 80061-TC; 80076-TC; 82272-TC; 82306; 82728-TC; 83540-TC; 83735-TC; 83880; 84100-TC; 84439-TC; 84443-TC; 84484-TC; 85025-TC; 85730-TC; 87081-TC; 93307-TC; A4606; J1644; J3490; J7040; J7042; J8597; Z7610

== ENCOUNTER 2017-09-24 07:48 | Inpatient (IN) | payer MEDICAID, MEDICARE ==
[~2017-09-24] VITALS: Ht 157.5 cm; Wt 89.8 kg
[~2017-09-24 07:48] MED LIST changes: +ALBU2.5V38 IH; -ATOR10TA PO; +CLOP75TA15 PO; -ENOX80DI SQ; +EVOL140S SQ; -FLUT1DIS3 IH; -Hydralazine Hcl PO; +ISOS60TA4 PO; -LISI40TA4 PO; -Lorazepam PO; +MECL12.582 PO; -NICO1PAT28 TD; +PANT40TA2 PO; +RANO500T3 PO
--- NOTE | 2017-09-24 07:48 | NUR ---
BIB RA 39 FROM HOME, NOT ACTING RIGHT PER FAMILY SINCE 10 PM LAST NIGHT. BS 107. PLACED ON MONITOR AWAITING MD ORDER
[2017-09-24] MEDS ORDERED: IV NS 0.9% 500 ML BAG IV ONE (08:00)
[2017-09-24 08:11] LABS: BASOPHILS % (AUTO) 0.6 % (0.0-2.0); EOSINOPHILS # (AUTO) 0.2 /CMM (0.0-0.7); EOSINOPHILS % (AUTO) 1.9 % (0.0-6.0); HEMATOCRIT 34 % (33-45); HEMOGLOBIN 11.5 g/dL (11.5-14.8); LYMPHOCYTES # (AUTO) 1.3 /CMM (0.8-4.8); LYMPHOCYTES % (AUTO) 16.1 % (20.0-44.0); MEAN CORPUSCULAR HEMOGLOBIN 32 PG (26.0-33.0); MEAN CORPUSCULAR HGB CONC 34 g/dl (31.0-36.0); MEAN CORPUSCULAR VOLUME 93 fL (82-100); MONOCYTES # (AUTO) 0.4 /CMM (0.1-1.30); MONOCYTES % (AUTO) 4.5 % (2.0-12.0); NEUTROPHILS # (AUTO) 6.3 /CMM (1.8-8.9); NEUTROPHILS % (AUTO) 76.9 % (43.0-81.0); PLATELET COUNT (AUTO) 251 /CMM (150-450); RDW COEFFICIENT OF VARIATION 14.1 (11.5-15.0); RED BLOOD CELL COUNT(AUTO) 3.65 MIL/uL (4.0-5.2); WHITE BLOOD COUNT (AUTO) 8.2 K/uL (4.3-11.0)
[2017-09-24] MEDS ORDERED: PANT40TA2 PO (08:16)
[2017-09-24 08:21] LABS: CREATININE 2.1 mg/dL (0.6-1.3); POTASSIUM 5.9 mmol/L (3.5-5.1)
[2017-09-24 08:27] LABS: ALBUMIN 3.1 g/dL (3.4-5.0); BILIRUBIN,DIRECT 0.1 mg/dL (0.0-0.2); BILIRUBIN,TOTAL 0.3 mg/dL (0.2-1.0); TOTAL PROTEIN, SERUM 7.1 g/dL (6.4-8.2)
[2017-09-24 08:29] LABS: TROPONIN I 0.102 ng/mL (0.00-0.056)
[2017-09-24 08:35] LABS: INR 0.9 (0.87-1.13)
--- NOTE | 2017-09-24 08:50 | NUR ---
PT TAKEN TO CT
--- NOTE | 2017-09-24 09:50 | NUR ---
URINE SAMPLE COLLECTED SENT TO LAB
[2017-09-24 09:55] LABS: APPEARANCE,URINE CLEAR (CLEAR); BILIRUBIN,URINE NEGATIVE (NEGATIVE); BLOOD, URINE TRACE-INTA Ery/uL (NEGATIVE); COLOR,URINE YELLOW (YELLOW); KETONES,URINE NEGATIVE (NEGATIVE); LEUKOCYTE ESTERASE ,URINE NEGATIVE (NEGATIVE); NITRITE, URINE NEGATIVE (NEGATIVE); PROTEIN,URINE 1+ mg/dl (NEGATIVE); UGLUCOSE NEGATIVE (NEGATIVE); UROBILINOGEN,URINE 0.2 EU/dL (0.2)
[2017-09-24 10:01] LABS: BACTERIA,URINE Rare /HPF (None Seen); RBC,URINE 0-2 /HPF (0-2); SQUAMOUS EPITHELIAL CELL,UR Moderate /HPF (None Seen); WBC,URINE 0-2 /HPF (0-3)
--- NOTE | 2017-09-24 11:43 | NUR ---
CALLED , TRANSFERRED CALL TO
--- NOTE | 2017-09-24 11:50 | NUR ---
GAVE REPORT TO DELMAR MONTES TELE ROOM 311-[address] CHOWDHURY
[2017-09-24 12:25] VITALS: BP 152/78
--- NOTE | 2017-09-24 12:25 | NUR ---
pt. admitted to rm 311-2.hooked up to tele,sr rate of 63.hep lock in place instructed not to get oob,due to dizziness.
[2017-09-24] MEDS ORDERED: LISI40TA4 PO (14:22)
--- NOTE | 2017-09-24 15:30 | NUR ---
admit photos taken of bruises on legs and markings on face.pt. very cooperative.
[2017-09-24 16:00] VITALS: BP 145/78
--- NOTE | 2017-09-24 16:00 | NUR ---
dr. mcallister called for orders.med sheet faxed to pharmacy.
[2017-09-24] MEDS ORDERED: ALBUTEROL FS 2.5 MG/3 ML VIAL.NEB IH PRN (16:30)
[2017-09-24] MEDS ORDERED: MECLIZINE HCL 12.5 MG TABLET PO PRN (16:30)
[2017-09-24] MEDS ORDERED: ONDANSETRON HCL/PF 4 MG/2 ML VIAL IV PRN (18:00)
[2017-09-24] MEDS ORDERED: SODIUM POLYSTYRENE SULFONATE 15 G/60 ML BOTTLE PO ONE (18:00)
[2017-09-24] MEDS: IV 1/2NS 1000 ML 1,000 ML IV PRN (18:36)
[2017-09-24] MEDS: FLUTICASONE PROPIONATE 16 GM BOTTLE NS SCH (18:49)
--- NOTE | 2017-09-24 19:00 | NUR ---
kayexalate given for high potassium after pt. medicated with zofran.
--- NOTE | 2017-09-24 19:30 | NUR ---
VP GENETIC NOTES RECEIVED ON BED A/O X3-4,BREATHING REGULAR,NOT IN ANY FORM OF DISTRESS.SALINE LOCK RIGHT AC INTACT AND PATENT,INFUSING 1/2 NS AT 75ML/HR RATE.ADENIES DISCOMFORTS AT THE MOMENT.ABLE TO WALK WITH WALKER TO THE BATHROOM,NUIRSE ON STANDBY.CALL LIGHT IN REACH,NEEDS ANTICIPATED.
[2017-09-24 20:00] VITALS: BP 149/81
--- NOTE | 2017-09-24 20:00 | NUR ---
DOG AND CAT FOOD COOK NOTES IV SITE RIGHT AC LEAKING,NEW SALINE LOCK PLACE ON LEFT HAND #24,SAME IVF INFUSING.
[2017-09-24] MEDS: CARVEDILOL 12.5 MG TABLET PO SCH (20:44)
--- NOTE | 2017-09-24 20:45 | NUR ---
DELIVERY PERSON NOTES BP 149/87,COREG 25MG PO GIVEN SCHEDULED.
[2017-09-24 20:59] VITALS: BP 149/87
--- NOTE | 2017-09-25 06:28 | NUR ---
BANQUET HOUSEPERSON NOTES FAIRLY RESTED.WENT 3X TO THE TOILET FOR #2.KAYEXALATE EFFECTIVE.NO FALL ,NO INJURY.DENIES CHEST PAIN.CALL LIGHT IN REACH,NEEDS ATTENDED.WILL ENDORSE TO DAY NURSE FOR CAPO.
--- NOTE | 2017-09-25 07:10 | NUR ---
REPORT RECEIVED AT THE BEDSIDE. PATIENT IS SLEEPING. NO SOB OR DISTRESS NOTED AT THIS TIME. HEART RATE SR WITH BBB 79. PATIENT DOES NOT APPEAR TO BE IN PAIN, NO FACIAL GRIMACE. BED IN A LOW POSITION, FAMILY IS AT THE BEDSIDE. WILL CONTINUE TO MONITOR.
[2017-09-25 07:18] LABS: BASOPHILS % (AUTO) 0.8 % (0.0-2.0); EOSINOPHILS # (AUTO) 0.1 /CMM (0.0-0.7); EOSINOPHILS % (AUTO) 2.2 % (0.0-6.0); HEMATOCRIT 29 % (33-45); HEMOGLOBIN 10.1 g/dL (11.5-14.8); LYMPHOCYTES # (AUTO) 1.8 /CMM (0.8-4.8); LYMPHOCYTES % (AUTO) 29.3 % (20.0-44.0); MEAN CORPUSCULAR HEMOGLOBIN 32 PG (26.0-33.0); MEAN CORPUSCULAR HGB CONC 35 g/dl (31.0-36.0); MEAN CORPUSCULAR VOLUME 92 fL (82-100); MONOCYTES # (AUTO) 0.4 /CMM (0.1-1.30); MONOCYTES % (AUTO) 6.5 % (2.0-12.0); NEUTROPHILS # (AUTO) 3.8 /CMM (1.8-8.9); NEUTROPHILS % (AUTO) 61.2 % (43.0-81.0); PLATELET COUNT (AUTO) 217 /CMM (150-450); RDW COEFFICIENT OF VARIATION 14.6 (11.5-15.0); RED BLOOD CELL COUNT(AUTO) 3.16 MIL/uL (4.0-5.2); WHITE BLOOD COUNT (AUTO) 6.2 K/uL (4.3-11.0)
[2017-09-25 07:28] LABS: CALCIUM, SERUM 8.1 mg/dL (8.5-10.1); CREATININE 1.9 mg/dL (0.6-1.3); POTASSIUM 4.4 mmol/L (3.5-5.1)
[2017-09-25] MEDS ORDERED: PANTOPRAZOLE 40 MG TABLET.DR PO SCH (07:30)
[2017-09-25 07:36] LABS: TROPONIN I 0.121 ng/mL (0.00-0.056)
[2017-09-25 08:00] VITALS: BP 137/76
[2017-09-25] MEDS: IV 1/2NS 1000 ML 1,000 ML IV PRN (08:17)
[2017-09-25] MEDS: CARVEDILOL 12.5 MG TABLET PO SCH (08:18)
[2017-09-25] MEDS: FLUTICASONE PROPIONATE 16 GM BOTTLE NS SCH (08:23)
[2017-09-25] MEDS ORDERED: CLOPIDOGREL BISULFATE 75 MG TABLET PO SCH (09:00)
[2017-09-25] MEDS ORDERED: ASPIRIN 81 MG TAB.CHEW PO SCH (09:00)
[2017-09-25 09:10] VITALS: BP 123/55
[2017-09-25 09:13] VITALS: BP 131/69
[2017-09-25 09:16] VITALS: BP 125/65
[2017-09-25] MEDS: hydrALAZINE HCL 50 MG TABLET PO SCH ×2 (09:30→12:46)
[2017-09-25 09:47] LABS: THYROID STIMULATING HORMONE 1.017 uIU/mL (0.358-3.74)
--- NOTE | 2017-09-25 10:21 | NUR ---
EXPLAINED NEW MEDICATION, HYDRALAZINE, TO PT AND THAT DOCTOR WYATT HAD ORDERED IT FOR HER. PATIENT IS REFUSING THE MEDICATION, STATES "I ALREADY TOOK MY BLOOD PRESSURE MEDICATION THIS MORNING. I DON'T WANT ANY MORE THIS EARLY, MAYBE LATER." EXPLAINED THE IMPORTANCE AND THE RISK/BENEFIT OF TAKING THE MEDICATION. THE PATIENT STATES UNDERSTANDING BUT STILL REFUSES.
[2017-09-25] MEDS ORDERED: ATORVASTATIN 40 MG TABLET PO SCH (10:30)
[2017-09-25 12:46] VITALS: BP 121/71
--- NOTE | 2017-09-25 12:47 | NUR ---
PT REFUSED 1300 DOSE OF HYDRALAZINE
--- NOTE | 2017-09-25 15:24 | NUR ---
CALLED [facility] FOR RESULTS ON PT MRI. JJ ON PHONE STATES THAT SHE WILL HAVE SOMEONE READ THE RESULTS SHORTLY.
--- NOTE | 2017-09-25 16:00 | NUR ---
CALLED DR CHOWDHURY AND REPORTED MRI RESULTS. STATES IT IS OK TO DISCHARGE THE PATIENT HOME.
--- NOTE | 2017-09-25 17:00 | NUR ---
DISCHARGE INSTRUCTIONS GIVEN TO THE PATIENT AND ABLE TO UNDERSTAND. ALL PAPERWORK SIGNED AND BELONGINGS ACCOUNTED FOR. PATIENT STATES UNDERSTANDING ON ALL INSTRUCTIONS AND FOLLOW UP INFORMATION. IV REMOVED AND PRESSURE APPLIED, NO BLEEDING NOTED AT THE SITE. PICTURES OF SKIN ON DISCHARGE ARE NOT NEEDED THE WERE TAKEN LESS THAN 24 HOURS AGO AND WITH NO CHANGE. FLU AND PNEUMONIA VACCINES WERE NOT GIVEN PATIENT REFUSES BOTH EVEN WITH EDUCATION. PATIENT LEFT IN STABLE CONDITION, AMBULATORY, VIA PRIVATE CAR, WITH FRIEND, TO HOME. NO SOB OR DISTRESS, DENIES PAIN.
== END 2017-09-25 17:00 | disposition home or self-care (01) | DRG 111 ==
LOC: ER 07:50 → TELE 12:46 → MED 09-25 09:10
PROVIDERS: ADMIT Internal Medicine; ATTEND Internal Medicine
DX: H81.10 Benign paroxysmal vertigo, unspecified ear (principal); N17.9 Acute kidney failure, unspecified; E44.0 Moderate protein-calorie malnutrition; I50.9 Heart failure, unspecified; I13.0 Hypertensive heart and chronic kidney disease with heart failure and stage 1 through stage 4 chronic kidney disease, or unspecified chronic kidney disease; E87.5 Hyperkalemia; J44.9 Chronic obstructive pulmonary disease, unspecified; N18.3 Chronic kidney disease, stage 3 (moderate); I25.10 Atherosclerotic heart disease of native coronary artery without angina pectoris; I25.2 Old myocardial infarction; Z87.891 Personal history of nicotine dependence; Z82.49 Family history of ischemic heart disease and other diseases of the circulatory system; Z79.82 Long term (current) use of aspirin; Z98.61 Coronary angioplasty status; Z88.8 Allergy status to other drugs, medicaments and biological substances; Z79.899 Other long term (current) drug therapy; K21.9 Gastro-esophageal reflux disease without esophagitis; E78.5 Hyperlipidemia, unspecified; W06.XXXA Fall from bed, initial encounter; Y92.003 Bedroom of unspecified non-institutional (private) residence as the place of occurrence of the external cause; R09.82 Postnasal drip; R05 Cough; Z95.1 Presence of aortocoronary bypass graft; D64.9 Anemia, unspecified; D63.8 Anemia in other chronic diseases classified elsewhere; E55.9 Vitamin D deficiency, unspecified; E66.9 Obesity, unspecified; Z68.36 Body mass index [BMI] 36.0-36.9, adult
CPT/HCPCS: 36415; 70450-TC; 70551-TC; 71045-TC; 80048-TC; 80061-TC; 80076-TC; 81000-TC; 82306; 82728-TC; 83540-TC; 83605-TC; 84439-TC; 84443-TC; 84484-TC; 85025-TC; 85730-TC; 87040-TC; 87081-TC; 87086-TC; A4606; J2405; J3490; J7030; J7040; Z7610

== ENCOUNTER 2018-02-10 21:09 | Inpatient (IN) | payer OTHER, MEDICARE ==
[~2018-02-10] VITALS: Ht 157.5 cm; Wt 91.2 kg
[~2018-02-10 21:09] MED LIST changes: -EVOL140S SQ; -ISOS60TA4 PO
--- NOTE | 2018-02-10 21:15 | NUR ---
DR EUCEDA AT BEDSIDE FOR EVAL.
--- NOTE | 2018-02-10 21:15 | NUR ---
PT EVA FROM HOME TO ER BED 11. C/O SOB, PRESSURE LIKE CHEST PAIN X 1 WEEK NOW AND WORST TODAY. HX OF CAD. GOWNED AND PLACED ON MONITOR. AWAITING MD HOOKER.
[2018-02-10] MEDS ORDERED: ASPIRIN 325 MG TABLET ONE (21:23)
[2018-02-10] MEDS ORDERED: NITROGLYCERIN PACKET 1 GM PACKET ONE (21:23)
[2018-02-10] MEDS ORDERED: NITROGLYCERIN PACKET 1 GM PACKET TD ONE (21:30)
[2018-02-10] MEDS ORDERED: ASPIRIN 325 MG TABLET PO ONE (21:30)
[2018-02-10] MEDS ORDERED: ALBUTEROL FS 2.5 MG/0.5 ML VIAL.NEB NEB ONE (21:30)
--- NOTE | 2018-02-10 21:31 | NUR ---
RADIOLOGY AT BEDSIDE FOR CHEST XRAY.
[2018-02-10] MEDS ORDERED: ALBUTEROL FS 2.5 MG/0.5 ML VIAL.NEB ONE (21:37)
[2018-02-10 21:39] LABS: BASOPHILS # (AUTO) 0.1 /CMM (0.0-0.2); BASOPHILS % (AUTO) 1.4 % (0.0-2.0); EOSINOPHILS % (AUTO) 2.1 % (0.0-6.0); HEMATOCRIT 28 % (33-45); HEMOGLOBIN 9.8 g/dL (11.5-14.8); LYMPHOCYTES # (AUTO) 0.9 /CMM (0.8-4.8); LYMPHOCYTES % (AUTO) 14.8 % (20.0-44.0); MEAN CORPUSCULAR HEMOGLOBIN 33 PG (26.0-33.0); MEAN CORPUSCULAR HGB CONC 35 g/dl (31.0-36.0); MEAN CORPUSCULAR VOLUME 93 fL (82-100); MONOCYTES # (AUTO) 0.5 /CMM (0.1-1.30); MONOCYTES % (AUTO) 8.4 % (2.0-12.0); NEUTROPHILS # (AUTO) 4.3 /CMM (1.8-8.9); NEUTROPHILS % (AUTO) 73.3 % (43.0-81.0); PLATELET COUNT (AUTO) 308 /CMM (150-450); RDW COEFFICIENT OF VARIATION 14.3 (11.5-15.0); RED BLOOD CELL COUNT(AUTO) 3.01 MIL/uL (4.0-5.2); WHITE BLOOD COUNT (AUTO) 5.9 K/uL (4.3-11.0)
[2018-02-10 21:45] LABS: CALCIUM, SERUM 8.6 mg/dL (8.5-10.1); CREATININE 2.4 mg/dL (0.6-1.3); POTASSIUM 4.6 mmol/L (3.5-5.1)
--- NOTE | 2018-02-10 21:48 | NUR ---
CALLED NURSING SUP. FOR TELE BED
[2018-02-10 21:53] LABS: TROPONIN I 5.756 ng/mL (0.00-0.056)
--- NOTE | 2018-02-10 21:58 | NUR ---
CALLED ('S PRESSURE TEST OPERATOR), REPEAT PHOTOCOMPOSING MACHINE OPERATOR, PAGED TO CALL BACK Addendum: 02/10/18 at 2159 by TAMEKA ,
--- NOTE | 2018-02-10 22:47 | NUR ---
REPORT GIVEN TO NURSE. PT AWAITING TRANSFER TO FLOOR.
[2018-02-10] MEDS ORDERED: MECLIZINE HCL 12.5 MG TABLET PO PRN (23:00)
[2018-02-10] MEDS ORDERED: ONDANSETRON HCL/PF 4 MG/2 ML VIAL IVP PRN (23:30)
[2018-02-10] MEDS ORDERED: MORPHINE SULFATE INJ 2 MG/ML DISP.SYRIN IV PRN (23:30)
[2018-02-10] MEDS ORDERED: ACETAMINOPHEN 650 MG/SUPP.RECT RC PRN (23:30)
[2018-02-10 23:34] LABS: ALBUMIN 2.9 g/dL (3.4-5.0); BILIRUBIN,DIRECT 0.1 mg/dL (0.0-0.2); BILIRUBIN,TOTAL 0.3 mg/dL (0.2-1.0); TOTAL PROTEIN, SERUM 6.3 g/dL (6.4-8.2)
[2018-02-11] VITALS: BP 172/89
--- NOTE | 2018-02-11 00:02 | NUR ---
PATIENT TRASNFERRED TO [facility] VIA GURNEY.
[2018-02-11] MEDS: CARVEDILOL 12.5 MG TABLET PO SCH ×3 (00:18→21:40)
[2018-02-11] MEDS: ATORVASTATIN 40 MG TABLET PO SCH ×2 (00:18→21:34)
--- NOTE | 2018-02-11 00:30 | NUR ---
RN ADMITTING NOTES Patient admitted from ER, via [facility] with ACLS protocol. Patient able to ambulate with observed severe SOB with activity and exertion, patient unable to lie flat. Rest periods provided. patient placed on 2Lpm of O2 via NC. Diminished breath sounds on lower lung de la fuente. BLE swelling noted. denies chest pain. oriented to unit protocols. Dr. Corral assessed patient. Patient's questions answered. updated with plan of care. needs anticipated and met. call light in reach. safety and comfort ensured.
[2018-02-11 04:00] VITALS: BP 148/82
[2018-02-11 06:21] LABS: ALBUMIN 2.7 g/dL (3.4-5.0); BILIRUBIN,TOTAL 0.3 mg/dL (0.2-1.0); CALCIUM, SERUM 8.5 mg/dL (8.5-10.1); CREATININE 2.3 mg/dL (0.6-1.3); PHOSPHORUS 4.1 mg/dL (2.5-4.9)
[2018-02-11 06:23] LABS: HEMATOCRIT 28 % (33-45); HEMOGLOBIN 9.6 g/dL (11.5-14.8); MEAN CORPUSCULAR HEMOGLOBIN 32 PG (26.0-33.0); MEAN CORPUSCULAR HGB CONC 34 g/dl (31.0-36.0); MEAN CORPUSCULAR VOLUME 94 fL (82-100); PLATELET COUNT (AUTO) 286 /CMM (150-450); RDW COEFFICIENT OF VARIATION 13.9 (11.5-15.0); RED BLOOD CELL COUNT(AUTO) 3.01 MIL/uL (4.0-5.2); WHITE BLOOD COUNT (AUTO) 6.1 K/uL (4.3-11.0)
--- NOTE | 2018-02-11 06:31 | NUR ---
RN CLOSING NOTES PATIENT ABLE TO SLEEP COMFORTABLY, HOB ELEVATED, KEPT ON 2LPM OF O2 VIA NC. EKG WITH NO ACUTE CHANGES, NSR WITH BBB. KEPT COMFORTABLE. SAFETY AND COMFORT ENSURED. ASSISTED WITH ADLS. CALL LIGHT IN REACH. WILL ENDORSE ACCORDINGLY.
[2018-02-11 06:38] LABS: TROPONIN I 5.295 ng/mL (0.00-0.056)
--- NOTE | 2018-02-11 06:45 | NUR ---
RN NOTES RECEIVED CRITICAL LAB RESULT FROM LAB. TROPONIN = 5.296. READ BACK COMPLETE. INFORMED DR. DUARTE OF THE TROPONIN TREND AND EKG RESULT. NNO.
[2018-02-11 07:17] LABS: THYROID STIMULATING HORMONE 1.477 uIU/mL (0.358-3.74)
[2018-02-11 07:34] LABS: IRON, SERUM 27 ug/dl (50-175); TOTAL IRON BINDING CAPACITY 252 ug/dl (250-450)
[2018-02-11 08:00] VITALS: BP 142/70
[2018-02-11] MEDS: PANTOPRAZOLE 40 MG TABLET.DR PO SCH (08:18)
[2018-02-11] MEDS: DOCUSATE SODIUM 100 MG CAPSULE PO SCH ×2 (08:19→16:53)
[2018-02-11] MEDS: ASPIRIN 81 MG TAB.CHEW PO SCH (08:19)
[2018-02-11] MEDS ORDERED: RANEXA 500 MG PO SCH ×2 (09:00)
[2018-02-11] MEDS ORDERED: HEPARIN SODIUM, PORCINE 5000 UNITS/1 ML VIAL IV ONE (09:00)
--- NOTE | 2018-02-11 09:15 | NUR ---
RN Note: Dr Frank at bedside for cardiac consult. Updated on pt status, labs reviewed. Pt presents with recent angiogram, pt states it was a failed cardiac intervention. Results requested by Dr Frank from [facility], consent and request faxed accordingly. Pt to be initiated on Heparin drip for ACS/AMI. Ok to continue Plavix and ASA per MD. wood type finisher made aware.
[2018-02-11] MEDS: CLOPIDOGREL BISULFATE 75 MG TABLET PO SCH (09:28)
[2018-02-11] MEDS: HEPARIN INFUSION/D5W 500 ML IV PRN (09:30)
[2018-02-11 10:30] LABS: EOSINOPHILS % (MANUAL) 2 % (0-4); LYMPHOCYTES % (MANUAL) 27 % (16-48); MONOCYTES % (MANUAL) 7 % (0-11.0); NEUTROPHILS % (MANUAL) 64 (42-76)
[2018-02-11] MEDS: hydrALAZINE HCL 50 MG TABLET PO SCH ×3 (10:45→16:53)
[2018-02-11 12:00] VITALS: BP 139/72
[2018-02-11 13:32] LABS: OCCULT BLOOD STOOL NEGATIVE (NEGATIVE)
--- NOTE | 2018-02-11 13:48 | NUR ---
Patient is alert,lives alone locally in a [address] dwelling. She is ambulatory and independent with adl's. 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 Patient pcp is , scaffold builder is Dr. Hoffmann both are in [place]. Patient friend or caregiver will provide ride home once discharge. Addendum: 02/11/18 at 1349 by ANALI CHO RN Amended: Links added.
--- NOTE | 2018-02-11 14:15 | NUR ---
RN Note: Dr Lucia at bedside; updated on pt status. Pt for discharge/ transfer to [facility] - pt updated.
--- NOTE | 2018-02-11 15:30 | NUR ---
RN/Note: 1530 PTT is 61; per dosing protocol, no dosage change required. Next PTT draw in following AM.
[2018-02-11 16:00] VITALS: BP 128/64
[2018-02-11 20:00] VITALS: BP 117/58
--- NOTE | 2018-02-11 20:29 | NUR ---
RN [facility] INITIAL NOTE RECEIVED PT AWAKE IN BED NO DISTRESS OR C/O PAIN, VS STABLE, ALL NEEDS ATTENDED, @ 1530 PTT IS 61; PER DOSING PROTOCOL, NO DOSAGE CHANGES REQUIRED, NEXT PTT DRAW IN AM, WILL CONT TO MONITOR PT.
--- NOTE | 2018-02-11 21:09 | NUR ---
ZACK MANSFIELD CALLED REQUESTING DC ORDER BY DR WALKER, PROVIDED FAX TO SEND ORDER, IN ORDER TO TRANSFER PT TO [facility], HOWEVER, INFORMED PT OF PLANS TO TRANSFER PT REFUSED, "STATED NO SUCH DISCUSSIONS WERE DISCUSSED WITH HER AND FOR THAT MATTER, NEEDS TO SPEAK DIRECTLY TO ZACK OR DR WALKER." AWAITED CALL BACK FROM CM, NO CALL BACK INFORMED CM PT SAID SHE NEEDED TO TALK TO HER.
[2018-02-12] VITALS: BP 142/77
[2018-02-12 04:00] VITALS: BP 142/54
--- NOTE | 2018-02-12 06:06 | NUR ---
RN [facility] CLOSING NOTE ENDORSED PT ASLEEP IN BED NO DISTRESS OR C/O PAIN, VS STABLE, ALL NEEDS ATTENDED, @ 1530 PTT IS 61; PER DOSING PROTOCOL, NO DOSAGE CHANGES REQUIRED, NEXT PTT DRAW IN AM, WILL ENDORSE TO AM RN TO F/U ON PTT RESULTS, FOR NEW RECALCULATION OF HEPARIN DRIP. PT FOR POSSIBLE TRANSFER TO [facility]/, PAPER WORK COMPLETE SINCE YESTERDAY, PLSE F/U..
--- NOTE | 2018-02-12 07:10 | NUR ---
RN INITIAL NOTES: REC'D PT ASLEEP ON BED, NOT IN ANY DISTRESS AT THIS TIME. 0800h PT IS A/O X 4, ABLE TO AMBULATE W/O ASSISTANCE TO THE RESTROOM, STEADY GAIT, THOUGH C/O MILD DIZZINESS, OFFERED MEDICATION SAID SHE DOESN'T WANT IT AT THIS TIME. PT ASSISTED BACK TO BED. PT NOTED TO BE SOB, C/O CHEST PAIN, NTG GIVEN PRN MED. PT RESTING COMFORTABLY IN BED. REMINDED PT TO PRESS CALL LIGHT IF STILL HAS CHEST PAIN W/ VERBALIZATION OF UNDERSTANDING. 0900h PT STATED THAT SHE IS NOT FEELING WELL, STILL HAS PAIN BUT SAID IT'S MORE OF HEART PAIN AND THAT SHE IS VERY TIRED. PT ASKING FOR PAIN MEDICATION. EXPLAINED TO HER THAT SHE JUST TOOK HER BP MEDS AND PAIN MED MOSO4 MIGHT DROP HER BP. DESPITE OF EXPLAINING, SHE STILL INSISTING FOR HER PAIN MED. BP MONITORED CLOSELY. ON TELEMONITOR, SR. HAS L AC G18, PL, W/ HEPARIN DRIP X 1200 U/HR INFUSING WELL, NO S/SX OF INFECTION/INFILTRATION. PROVIDED COMFORT & SAFETY MEASURES. BED KEPT LOW & IN LOCKED POS. CALL LIGHT PLACED W/IN REACH. WILL CONTINUE TO MONITOR & ATTEND PT NEEDS. DCP DISCUSSED W/ PT. PER PT, SHE WANTED TO TALK FIRST W/ HER MD.
[2018-02-12] MEDS: HEPARIN INFUSION/D5W 500 ML IV PRN (07:27)
[2018-02-12 07:39] LABS: ALBUMIN 2.6 g/dL (3.4-5.0); BILIRUBIN,TOTAL 0.3 mg/dL (0.2-1.0); CALCIUM, SERUM 8.2 mg/dL (8.5-10.1); MAGNESIUM 1.9 mg/dL (1.8-2.4); PHOSPHORUS 4.3 mg/dL (2.5-4.9); POTASSIUM 4.5 mmol/L (3.5-5.1); TOTAL PROTEIN, SERUM 5.9 g/dL (6.4-8.2)
[2018-02-12 07:46] LABS: HEMATOCRIT 28 % (33-45); HEMOGLOBIN 9.3 g/dL (11.5-14.8); RED BLOOD CELL COUNT(AUTO) 2.96 MIL/uL (4.0-5.2); WHITE BLOOD COUNT (AUTO) 5.6 K/uL (4.3-11.0)
[2018-02-12 07:47] LABS: BASOPHILS % (AUTO) 1.6 % (0.0-2.0); EOSINOPHILS % (AUTO) 2.9 % (0.0-6.0); LYMPHOCYTES % (AUTO) 21.2 % (20.0-44.0); MEAN CORPUSCULAR HEMOGLOBIN 31 PG (26.0-33.0); MEAN CORPUSCULAR HGB CONC 33 g/dl (31.0-36.0); MEAN CORPUSCULAR VOLUME 95 fL (82-100); MONOCYTES % (AUTO) 7.6 % (2.0-12.0); NEUTROPHILS % (AUTO) 66.7 % (43.0-81.0); PLATELET COUNT (AUTO) 319 /CMM (150-450); RDW COEFFICIENT OF VARIATION 14.6 (11.5-15.0)
[2018-02-12 07:58] LABS: TROPONIN I 4.706 ng/mL (0.00-0.056)
[2018-02-12 08:00] VITALS: BP 150/63
[2018-02-12] MEDS: PANTOPRAZOLE 40 MG TABLET.DR PO SCH (08:00)
[2018-02-12] MEDS: NITROGLYCERIN 0.4 MG/TAB BOTTLE SL PRN ×3 (08:01→12:00)
[2018-02-12] MEDS: CLOPIDOGREL BISULFATE 75 MG TABLET PO SCH (08:47)
[2018-02-12] MEDS: DOCUSATE SODIUM 100 MG CAPSULE PO SCH ×2 (08:47→17:30)
[2018-02-12] MEDS: CARVEDILOL 12.5 MG TABLET PO SCH (08:47)
[2018-02-12] MEDS: ASPIRIN 81 MG TAB.CHEW PO SCH (08:47)
[2018-02-12] MEDS: hydrALAZINE HCL 50 MG TABLET PO SCH ×3 (08:47→17:31)
--- NOTE | 2018-02-12 10:43 | NUR ---
RN NOTES: PT SEEN & EXAMINED BY DR. SCHNEIDER W/ ORDERS TO TRANSFER PT TO [facility]. ABLE TO TALK TO CM. PER MD, ON TRANSFER GIVE HEPARIN 3000 UNIT IVP X1 THEN DC HEPARIN DRIP. MANUAL BP TAKEN 132/76, MD INFORMED. CONSENT FOR TRANSFER SIGNED BY PT. PLACED IN THE CHART. Addendum: 02/12/18 at 1055 by JOSE ROBERTS RN ADDENDUM: UPDATED ABOUT PT'S STATUS RE: EPISODE OF CHEST PAIN THIS AM. FOLLOWED UP FROM [facility] RE: REQUEST MEDICAL RECORDS, SPOKE W/ [facility]. MORALES (LAUNDRY FOLDER) ALREADY FAXED REQUEST TO [facility] AT [phone].
[2018-02-12] MEDS ORDERED: MULTIVITAMINS,THERAGRAN 1 UDTAB TABLET PO SCH (11:00)
[2018-02-12] MEDS ORDERED: NITROGLYCERIN 30 GM TUBE TP SCH (11:00)
--- NOTE | 2018-02-12 11:30 | NUR ---
RN NOTES: PER DR. SCHNEIDER/ZACK AUGUSTE, PT NEEDS TO GO BACK TO [facility]. CM ABLE TO TALK TO THE PT AT BEDSIDE. PT AGREED TO GO, CONSENT FOR TRANSFER SECURED & PLACED IN THE CHART. DR. JONES UPDATED ABOUT THE DCP & AGREED. PT FOR HIDA SCAN STAT. CONSENT SECURED. PER [facility] ([phone]), PT NEEDS TO BE NPO AT LEAST 4 HOURS. NO MOSO4 SHOULD BE GIVEN FROM THE LAST GIVEN TIME. PT INSTRUCTED TO BE NPO W/ VERBALIZATION OF UNDERSTANDING.
[2018-02-12 12:00] VITALS: BP 131/67
--- NOTE | 2018-02-12 13:00 | NUR ---
RN NOTES: PT ACCOMPANIED THE WHOLE TIME TO RAD DEPT FOR HIDA SCAN VIA WHEELCHAIR. PT TOLERATED THE PROCEDURE. PER RADIOLOGIST, NEED TO APPLICATIONS DEVELOPMENT CONSULTANT PT AGAIN TO COMPLETE THE HIDA SCAN AT 1600h. 1600h PT ACCOMPANIED TO RAD DEPT FOR COMPLETION OF THE HIDA SCAN. PT TOLERATED THE PROCEDURE WELL.
--- NOTE | 2018-02-12 13:55 | NUR ---
NM:HIDA SCAN WAS COMPLETED. TECH:RB
[2018-02-12] MEDS ORDERED: SOD FERRIC GLUC 125 MG in IV NS 0.9% 100 ML IV SCH (14:00)
[2018-02-12 16:00] VITALS: BP 134/69
[2018-02-12] MEDS ORDERED: HEPARIN SODIUM, PORCINE 1000 UNIT/1 ML VIAL IV ONE (17:30)
[2018-02-12 17:31] VITALS: BP 129/69
[2018-02-12] MEDS ORDERED: HEPARIN SODIUM, PORCINE 5000 UNITS/1 ML VIAL IV ONE (18:00)
--- NOTE | 2018-02-12 18:08 | NUR ---
TECHNICAL SERVICES ANALYST/TRANSFER NOTES: PT TRANSFERRED TO [facility] FOR HIGHER LOC ORDERED. PT REMAINS A/O X 4, DENIES CHEST PAIN AT THE TIME OF DC BUT STATED THAT SHE FEELS TIRED. ON NC/2LPM, NO SOB. TELEMONITOR REMOVED. IV ACCESS ON R WRIST G22 & L AC G20, SL, BOTH FLUSHING WELL, KEPT CLEAN & DRY, PATENT & INTACT W/ NO S/SX OF INFECTION/INFILTRATION NOTED. DTR MADE AWARE OF THE DCP WHILE AT BEDSIDE. ALL BELONGINGS SENT W/ PT. DC DOCUMENTS & BELONGING LIST SIGNED BY PT W/ VERBALIZATION OF UNDERSTANDING. REPORT GIVEN TO JYOTI ALVAREZ (ROOM [id number]). PT PICKED UP VIA GURNEY ACCOMPANIED BY BROKER ASSISTANT. NO CONCERN/S IDENTIFIED AT THE TIME OF DC. HEPARIN 3000 UNITS IVP X1 GIVEN PRIOR TO DC, HEPARIN DRIP DC'D ORDERED BY DR. SCHNEIDER.
== END 2018-02-12 17:46 | disposition short-term general hospital (02) | DRG 280 ==
LOC: ER 21:11 → TELE-TD 22:44
PROVIDERS: ADMIT Internal Medicine; ATTEND Internal Medicine
DX: I21.4 Non-ST elevation (NSTEMI) myocardial infarction (principal); N17.0 Acute kidney failure with tubular necrosis; I13.0 Hypertensive heart and chronic kidney disease with heart failure and stage 1 through stage 4 chronic kidney disease, or unspecified chronic kidney disease; J90 Pleural effusion, not elsewhere classified; E44.0 Moderate protein-calorie malnutrition; K81.0 Acute cholecystitis; I50.9 Heart failure, unspecified; I25.10 Atherosclerotic heart disease of native coronary artery without angina pectoris; Z95.5 Presence of coronary angioplasty implant and graft; Z95.1 Presence of aortocoronary bypass graft; Z90.710 Acquired absence of both cervix and uterus; Z79.82 Long term (current) use of aspirin; K21.9 Gastro-esophageal reflux disease without esophagitis; Z79.899 Other long term (current) drug therapy; J44.9 Chronic obstructive pulmonary disease, unspecified; Z98.890 Other specified postprocedural states; E66.9 Obesity, unspecified; Z87.891 Personal history of nicotine dependence; I25.5 Ischemic cardiomyopathy; N18.9 Chronic kidney disease, unspecified; Z68.35 Body mass index [BMI] 35.0-35.9, adult; I11.0 Hypertensive heart disease with heart failure; D50.9 Iron deficiency anemia, unspecified; I27.20 Pulmonary hypertension, unspecified; E78.5 Hyperlipidemia, unspecified; E87.5 Hyperkalemia; I25.2 Old myocardial infarction; I24.9 Acute ischemic heart disease, unspecified
CPT/HCPCS: 36415; 71045-TC; 76705-TC; 78226; 80048-TC; 80053-TC; 80061-TC; 80076-TC; 82272-TC; 83540-TC; 83735-TC; 83880; 84100-TC; 84443-TC; 84484-TC; 85025-TC; 85730-TC; 87081-TC; 93307-TC; A4606; A9537; J1644; J2270; J2916; J7030; Z7610

== ENCOUNTER 2018-02-26 13:54 | Inpatient (IN) | payer MEDICARE, MEDICAID ==
[~2018-02-26] VITALS: Ht 165.1 cm; Wt 86.4 kg
[2018-02-26] VITALS (7 sets, daily range): BP systolic 144–166; BP diastolic 41–100
--- NOTE | 2018-02-26 13:57 | NUR ---
[id number], [id number] FROM HOME FOR SOB SINCE LAST NIGHT NITRO X 4 GIVEN BY EMS. RR IS EVEN AND SLIGHTLY LABORED. SKIN IS WARM AND DRY. PLACED ON THE MONITOR AND NC AT 2L/MIN. AWAITING MD FOR EVAL.
[2018-02-26] MEDS ORDERED: ASPIRIN 325 MG TABLET ONE (14:28)
[2018-02-26] MEDS ORDERED: IPRATROPIUM NEB FS 0.5 MG/2.5 ML AMPUL.NEB NEB ONE (14:30)
[2018-02-26] MEDS ORDERED: ASPIRIN 325 MG TABLET PO ONE (14:30)
[2018-02-26] MEDS ORDERED: ALBUTEROL FS 2.5 MG/0.5 ML VIAL.NEB NEB ONE (14:30)
[2018-02-26] MEDS ORDERED: ALBUTEROL FS 2.5 MG/3 ML VIAL.NEB ONE (14:42)
[2018-02-26] MEDS ORDERED: IPRATROPIUM NEB FS 0.5 MG/2.5 ML AMPUL.NEB ONE (14:42)
[2018-02-26 14:44] LABS: WHITE BLOOD COUNT (AUTO) 5.2 K/uL (4.3-11.0)
[2018-02-26 14:55] LABS: CALCIUM, SERUM 8.7 mg/dL (8.5-10.1); CREATININE 2.7 mg/dL (0.6-1.3); POTASSIUM 4.1 mmol/L (3.5-5.1)
[2018-02-26 14:56] LABS: BASOPHILS % (AUTO) 0.7 % (0.0-2.0); EOSINOPHILS % (AUTO) 1.7 % (0.0-6.0); HEMATOCRIT 30 % (33-45); LYMPHOCYTES # (AUTO) 0.7 /CMM (0.8-4.8); LYMPHOCYTES % (AUTO) 13.7 % (20.0-44.0); MEAN CORPUSCULAR HEMOGLOBIN 30 PG (26.0-33.0); MEAN CORPUSCULAR HGB CONC 33 g/dl (31.0-36.0); MEAN CORPUSCULAR VOLUME 91 fL (82-100); MONOCYTES # (AUTO) 0.5 /CMM (0.1-1.30); MONOCYTES % (AUTO) 9.3 % (2.0-12.0); NEUTROPHILS # (AUTO) 3.9 /CMM (1.8-8.9); NEUTROPHILS % (AUTO) 74.6 % (43.0-81.0); PLATELET COUNT (AUTO) 234 /CMM (150-450); RDW COEFFICIENT OF VARIATION 15.1 (11.5-15.0); RED BLOOD CELL COUNT(AUTO) 3.33 MIL/uL (4.0-5.2)
[2018-02-26 15:03] LABS: INR 1.06 (0.85-1.15)
[2018-02-26 15:07] LABS: TROPONIN I 5.076 ng/mL (0.00-0.056)
--- NOTE | 2018-02-26 15:18 | NUR ---
CALLED [facility] FOR PANEL CALL AND DR TAVARES WAS PAGED.
--- NOTE | 2018-02-26 15:22 | NUR ---
REQUESTED LENNY BED FROM [facility]
--- NOTE | 2018-02-26 15:22 | NUR ---
PAGED DR MATA - CARDIOLOGY
[2018-02-26] MEDS ORDERED: FUROSEMIDE 100 MG/10 ML VIAL ONE (15:27)
[2018-02-26] MEDS ORDERED: methylPREDNISolone SOD SUCC 125 MG/2ML VIAL IV ONE (15:30)
[2018-02-26] MEDS ORDERED: FUROSEMIDE 40 MG/4 ML VIAL IV ONE (15:30)
[2018-02-26] MEDS ORDERED: HEPARIN INFUSION/D5W 500 ML IV PRN (15:30)
[2018-02-26] MEDS ORDERED: HEPARIN SODIUM,PORCINE/PF 50 UNIT/5 ML DISP.SYRIN IV ONE (15:30)
[2018-02-26] MEDS ORDERED: HEPARIN SODIUM, PORCINE 5000 UNITS/1 ML VIAL ONE (15:44)
[2018-02-26] MEDS ORDERED: HEPARIN INFUSION/D5W 500 ML IV ONE (15:44)
[2018-02-26] MEDS ORDERED: methylPREDNISolone SOD SUCC 125 MG/2ML VIAL ONE (15:57)
--- NOTE | 2018-02-26 16:10 | NUR ---
ASSIGNED TO ICU RM#: [id number], DX: CHF EXACERBATION, AND ACCEPTING: DR TAVARES
--- NOTE | 2018-02-26 16:29 | NUR ---
REPORT GIVEN TO JYOTI JOY FOR [facility] ICU [id number]
[2018-02-26] MEDS ORDERED: HYDROCODONE/APAP 5/325MG 1 EACH TABLET PO PRN (16:30)
[2018-02-26] MEDS ORDERED: ALBUTEROL FS 2.5 MG/0.5 ML VIAL.NEB NEB PRN (16:30)
[2018-02-26] MEDS ORDERED: ONDANSETRON HCL/PF 4 MG/2 ML VIAL IVP PRN (16:30)
[2018-02-26] MEDS ORDERED: MAGNESIUM HYDROXIDE 30 ML UDC PO PRN (16:30)
[2018-02-26] MEDS ORDERED: ACETAMINOPHEN 325 MG TABLET PO PRN (16:30)
[2018-02-26] MEDS ORDERED: MAG HYDROX/AL HYDROX/SIMETH 30 ML UDC PO PRN (16:30)
--- NOTE | 2018-02-26 18:20 | NUR ---
RN NOTE 1739: Admitted 67y/o female Pashto patient, understands Latvian well. A/Ox4. With c/o SOB during exertion. on 2LPM of O2 via NC, 97% sat. Placed to bed, skin assessment done, skin is intact. No c/o chest pain at this time. With 2PIVs intact. On Heparin 1200 units/hr for ACS ongoing. No S/S bleeding noted at this time. Accompanied by female friend. SR 80's on the monitor. SBP 150's. 1800: Inserted shaw catheter for strict I&O. Daughter at bedside, updated re: patient's condition. 1819: No any significant changes noted at this time. Per patient she stopped smoking June 2017. Asked patient re: Renexa if somebody can bring from home, "I will try, it's okay not to have it for now.", per patient. Next PTT at 2029. Followed up with kitchen re: cardiac diet ordered. Encouraged patient to minimize fluid intake for now. Noted with BLE edema, elevated with pillows.
--- NOTE | 2018-02-26 18:38 | NUR ---
RN NOTE Held DVT pumps for BLE pitting edema, on Heparin drip for ACS.
--- NOTE | 2018-02-26 19:25 | NUR ---
ICU/DIGITAL MARKETING EXECUTIVE DR. TAVARES CAME IN TO SEE PT AND MADE THE ASSESSMENT THAT PT SHOULD HAVE SOLUMEDRAL 60MG Q 6HRS. ORDER RECEIVED AND PLACED INTO THE COMPUTER, WITH FIRST DOSE AT 2100 HOWEVER THE SECOND DOSE IS DEFAULTED TO HOSPITAL TIME OF 0900 INSTEAD OF 0300. WILL CONTINUE TO MONITOR THIS PT.
--- NOTE | 2018-02-26 19:34 | NUR ---
PT AGITATED WITH BREATHING TX. PT WITH INCREASED RR AND HR. PULLING ON AEROSOL MASK. TX DISCONTINUED Addendum: 02/26/18 at 1937 by RISA RAMON RT Amended: Links added.
--- NOTE | 2018-02-26 19:40 | NUR ---
ICU/EXECUTIVE PRODUCER PROMOS PT WAS RECEIVING BREATHING TREATMENT, PT STATED TO HAVE PANIC ATTACK. PT APPEARED TO BE GETTING OUT OF BED. PT WAS VERBALLY TOLD TO RELAX AND CALM DOWN HOWEVER PT WAS ACTING IF SHE COULD NOT HEAR THE STAFF THAT WERE AT BEDSIDE TRYING TO HELP HER STAY CALM AND SAFE. HAD TO RAISE MY VOICE TO GET PT'S ATTENTION. THEN PT SETTLED DOWN, STOPPED BREATHING TREATMENT AND GOT ABG ORDER STAT DUE TO THE FACT THERE HAD NOT BEEN ONE DONE. CALLED FAMILY MEMBER OLAF THE DAUGHTER, ASKED ABOUT HISTORY. OLAF SAID OVER PAST 1 1/2 MONTHS PT HAS BEEN DOING THIS MORE AND MORE TO GAIN ATTENTION. OLAF SAID SHE WOULD NOT BE COMING IN AND THAT TOMORROW WILL COME TO VISIT HER. PT WAS INFORMED OF CONVERSATION WITH DAUGHTER. WILL APPROACH PRIMARY MD FOR PSYCH EVAL.
--- NOTE | 2018-02-26 19:45 | NUR ---
ICU/RN RESEARCH CHARGE NURSE GIVEN ABG RESULTS, CHARGE NURSE PUT PT ON NON-REBREATHER MASK. NO CHANGES MADE DUE TO ABG RESULTS PER CHARGE NURSE. WILL CONTINUE TO MONITOR THIS PT. PT IS STILL RECEIVING LASIX AND SOLU-MEDROL IV. WILL CONTINUE TO MONITOR THIS RESULTS.
[2018-02-26 19:47] LABS: ABG BASE EXCESS -1.1 mmol/L; ABG OXYGEN SATURATION 91.2 % (92.0-98.5); ABG PCO2 34.4 mmHg (35.0-45.0); ABG PH 7.435 (7.350-7.450); ABG PO2 65.2 mmHg (75.0-100.0); AaDO2 122.7 mmHg; COHb 0.1 % (0.5-1.5); MetHb 0.5 % (0.0-1.5); O2Hb 90.7 % (94.0-97.0); SITE, ABG Right Brachial; VENT MODE, BG N/C 3L
--- NOTE | 2018-02-26 19:50 | NUR ---
ICU/WEDDING PLANNER ABG RESULTS ARE PH-7.435, PCO2-34.4, PO2-65.2, HC03-22.6 CHARGE SAID OK, WILL CONTINUE TO MONITOR THIS PT.
[2018-02-26] MEDS: MORPHINE SULFATE INJ 2 MG/ML DISP.SYRIN IV PRN (20:36)
[2018-02-26] MEDS: methylPREDNISolone SOD SUCC 125 MG/2ML VIAL IV SCH (21:00)
[2018-02-26] MEDS: FUROSEMIDE 40 MG/4 ML VIAL IV SCH (21:00)
[2018-02-26] MEDS: CARVEDILOL 12.5 MG TABLET PO SCH (21:01)
[2018-02-26] MEDS: HEPARIN INFUSION/D5W 500 ML IV PRN (21:07)
[2018-02-26] MEDS: ZOLPIDEM TARTRATE 5 MG TABLET PO PRN (22:23)
--- NOTE | 2018-02-26 22:37 | NUR ---
ICU/SOCIAL WORK JOB TITLES TROP AT 2200 IS 5.525 THIS IS INCREASED SLIGHTLY FROM 5.3 HOWEVER PT IS ON A HEPARIN DRIP. WILL CONTINUE TO MONITOR THIS PT CLOSELY AND HER LABS. CALL LIGHT WITHIN REACH, PT CURRENTLY DENIES ANY SOB. PT DID REQUEST SOMETHING TO SLEEP, AMBIEN 5MG GIVEN PO FOR THIS. WILL CONTINUE TO MONITOR THIS PT.
--- NOTE | 2018-02-26 22:52 | NUR ---
ICU/AIRCRAFT PNEUDRAULIC SYSTEMS MECHANIC PT'S PTT IS 67, PER LOGARITHM THAT WAS FOLLOWED BY PRIOR DAY SHIFT NURSE THERE IS NO CHANGE. HEPARIN WILL CONTINUE TO RUN AT 1200 UNITS/ HOUR WHICH IS CURRENT RATE. CHARGE NURSE MADE AWARE OF THE CURRENT PTT OF 67, PT TO HAVE ANOTHER PTT IN THE MORNING PER THE CURRENT LOGARITHM.
[2018-02-27] VITALS (24 sets, daily range): BP systolic 122–158; BP diastolic 28–99
--- NOTE | 2018-02-27 02:00 | NUR ---
ICU/IT OPERATIONS MANAGER PT MANAGED TO STAY ASLEEP THROUGH THE NIGHT, NO DISTRESS SEEN, PT APPEARS TO BE COMFORTABLE. CALL LIGHT WITHIN REACH. WILL CONTINUE TO MONITOR THIS PT.
[2018-02-27 05:47] LABS: CALCIUM, SERUM 8.4 mg/dL (8.5-10.1); CREATININE 2.8 mg/dL (0.6-1.3); MAGNESIUM 1.8 mg/dL (1.8-2.4); PHOSPHORUS 5.5 mg/dL (2.5-4.9); POTASSIUM 4.1 mmol/L (3.5-5.1)
[2018-02-27 05:52] LABS: HEMATOCRIT 32 % (33-45); HEMOGLOBIN 10.4 g/dL (11.5-14.8); MEAN CORPUSCULAR HEMOGLOBIN 31 PG (26.0-33.0); MEAN CORPUSCULAR HGB CONC 33 g/dl (31.0-36.0); MEAN CORPUSCULAR VOLUME 94 fL (82-100); PLATELET COUNT (AUTO) 227 /CMM (150-450); RDW COEFFICIENT OF VARIATION 15.6 (11.5-15.0); RED BLOOD CELL COUNT(AUTO) 3.39 MIL/uL (4.0-5.2); WHITE BLOOD COUNT (AUTO) 3.6 K/uL (4.3-11.0)
--- NOTE | 2018-02-27 06:10 | NUR ---
ICU/PUBLICATIONS EDITOR PTT IS 66, PER LOGARITHM THERE IS NO CHANGE. CHARGE NURSE AWARE OF RESULTS. TOMORROW THERE WILL BE A PTT.
[2018-02-27 06:16] LABS: LYMPHOCYTES % (MANUAL) 8 % (16-48); MONOCYTES % (MANUAL) 1 % (0-11.0); NEUTROPHILS % (MANUAL) 91 (42-76)
--- NOTE | 2018-02-27 07:36 | NUR ---
FIELDWORK COORDINATOR RECEIVED PATIENT FROM THE PREVIOUS SHIFT. PATIENT IS IN BED. RESTING COMFORTABLY. NO ACUTE DISTRESS NOTED. ON NRB MASK AT THIS TIME. DOW DRAINING URINE TO GRAVITY. STABLE VITAL SINGS. TURNED AND REPOSITIONED FOR COMFORT AND WOUND PREVENTION. WILL CONTINUE TO MONITOR AND PROVIDE CARE.
[2018-02-27] MEDS: FUROSEMIDE 40 MG/4 ML VIAL IV SCH (08:04)
[2018-02-27] MEDS: PANTOPRAZOLE 40 MG TABLET.DR PO SCH (08:04)
[2018-02-27] MEDS: methylPREDNISolone SOD SUCC 125 MG/2ML VIAL IV SCH ×4 (08:04→21:12)
[2018-02-27] MEDS: ASPIRIN 81 MG TAB.CHEW PO SCH (08:04)
[2018-02-27] MEDS: CLOPIDOGREL BISULFATE 75 MG TABLET PO SCH (08:04)
[2018-02-27] MEDS: CARVEDILOL 12.5 MG TABLET PO SCH ×2 (08:05→21:13)
--- NOTE | 2018-02-27 08:48 | NUR ---
INVESTIGATOR RN RECEIVED WRITTEN AUTHORIZATION FROM THE PATIENT TO GET HEALTHCARE INFORMATION/ CT ANGIO RESULTS FROM THE [facility]. SALESPERSON TOY TRAINS AND ACCESSORIES TO FAX AND CALL [facility] MEDICAL RECORDS FOR THE RECORDS. FAMILY TO BRING NON FORMULARY MEDICATIONS FROM THE HOSPITAL. PRINCIPAL LIBRARIAN AWARE.
[2018-02-27] MEDS ORDERED: BUMETANIDE INJ 16 MG in IV NS 0.9% 16 ML IV ONE (09:15)
[2018-02-27] MEDS: ISOSORBIDE MONONITRATE (30MG) 30 MG TAB.SR.24H PO SCH (10:02)
[2018-02-27] MEDS: hydrALAZINE HCL 25 MG TABLET PO SCH ×2 (10:02→17:10)
--- NOTE | 2018-02-27 12:44 | NUR ---
PARK AIDE RN CALLED PATIENT'S FAMILY MEMBER AND CONFIRMED THAT THEY ARE BRINING RENEXA. NO ETA. PHARMACIST MADE AWARE. SKID WRAPPER AWARE.
[2018-02-27] MEDS: MORPHINE SULFATE INJ 2 MG/ML DISP.SYRIN IV PRN ×2 (14:57→18:38)
--- NOTE | 2018-02-27 17:20 | NUR ---
CONTENT COORDINATOR PER PATIENT HER NEIGHBOR IS BRINGING HER NON FORMULARY MEDICATIONS. PATIENT IS NOT SURE WHEN SHE WOULD BRING IT. PER PATIENT, HER DAUGHTER DOES NOT ATTEND TO HER MEDICAL NEEDS AT THIS TIME. PULL UP HAND REQUESTED.
[2018-02-27] MEDS: HEPARIN INFUSION/D5W 500 ML IV PRN (19:38)
[2018-02-27] MEDS: Ranolazine (Ranexa) 1,000 MG PO SCH (21:12)
--- NOTE | 2018-02-27 23:25 | NUR ---
PT COMPLAINED OF SORE THROAT, C. AKINS AT BEDSIDE , WITH NEW ORDER OF CEPACOL ISABEL Q2HRS PRN .
[2018-02-28] VITALS (29 sets, daily range): BP systolic 89–143; BP diastolic 48–107
[2018-02-28] MEDS: hydrALAZINE HCL 25 MG TABLET PO SCH ×2 (00:27→09:03)
[2018-02-28] MEDS: ZOLPIDEM TARTRATE 5 MG TABLET PO PRN (00:28)
[2018-02-28 04:47] LABS: HEMATOCRIT 32 % (33-45); HEMOGLOBIN 10.3 g/dL (11.5-14.8); LYMPHOCYTES # (AUTO) 0.5 /CMM (0.8-4.8); MEAN CORPUSCULAR HEMOGLOBIN 31 PG (26.0-33.0); MEAN CORPUSCULAR HGB CONC 33 g/dl (31.0-36.0); MEAN CORPUSCULAR VOLUME 94 fL (82-100); MONOCYTES # (AUTO) 0.3 /CMM (0.1-1.30); MONOCYTES % (AUTO) 3.8 % (2.0-12.0); NEUTROPHILS # (AUTO) 6.1 /CMM (1.8-8.9); NEUTROPHILS % (AUTO) 89.2 % (43.0-81.0); PLATELET COUNT (AUTO) 239 /CMM (150-450); RDW COEFFICIENT OF VARIATION 15.4 (11.5-15.0); RED BLOOD CELL COUNT(AUTO) 3.36 MIL/uL (4.0-5.2); WHITE BLOOD COUNT (AUTO) 6.9 K/uL (4.3-11.0)
[2018-02-28 05:06] LABS: ALBUMIN 2.8 g/dL (3.4-5.0); BILIRUBIN,TOTAL 0.3 mg/dL (0.2-1.0); CALCIUM, SERUM 7.9 mg/dL (8.5-10.1); MAGNESIUM 1.7 mg/dL (1.8-2.4); PHOSPHORUS 5.1 mg/dL (2.5-4.9); POTASSIUM 3.4 mmol/L (3.5-5.1)
--- NOTE | 2018-02-28 07:22 | NUR ---
received report on patient. sleeping awake to light touch. a/ox4, denies sob, difficulty breathing at this time. states she does feel sob with activity. tolerating nc 3lpm 93% at rest. heparin drip running per protocol with no change in drip rate this am s/p ptt level. patient nsr/st with bbb. shaw cath in place for strict i&o. iv site's c/d/i/p. will f/u on fax request for medical records to [facility] sent yesterday.
[2018-02-28] MEDS: methylPREDNISolone SOD SUCC 125 MG/2ML VIAL IV SCH (08:15)
[2018-02-28] MEDS: CLOPIDOGREL BISULFATE 75 MG TABLET PO SCH (08:16)
[2018-02-28] MEDS: ASPIRIN 81 MG TAB.CHEW PO SCH (08:16)
[2018-02-28] MEDS: PANTOPRAZOLE 40 MG TABLET.DR PO SCH (08:16)
--- NOTE | 2018-02-28 08:37 | NUR ---
CALLING [facility] FOR MEDICAL RECORDS REQUEST FOR CATH REPORT PER DR SCHNEIDER. . PER MEDICAL RECORDS STATED THEY WILL SEND NOW. DR SCHNEIDER AWARE. PENDING RECEIVING FAX.
[2018-02-28] MEDS: ISOSORBIDE MONONITRATE (30MG) 30 MG TAB.SR.24H PO SCH (09:04)
[2018-02-28] MEDS: CARVEDILOL 12.5 MG TABLET PO SCH ×2 (09:04→21:21)
[2018-02-28] MEDS: Ranolazine (Ranexa) 1,000 MG PO SCH ×2 (09:05→17:06)
[2018-02-28] MEDS: hydrALAZINE HCL 50 MG TABLET PO SCH ×2 (09:30→17:10)
--- NOTE | 2018-02-28 09:31 | NUR ---
RECEIVED FAX FROM [facility] PER DR SCHNEIDER ORDER. DR CHOWDHURY AT BEDSIDE REVIEWING. PER MD PATIENT TO STAY AT SO AT THIS TIME. NOTIFIED MD PATIENT URINE IS PINK TINGED. PER MD OBTAIN UA. MESSAGE TO DR SCHNEIDER TO NOTIFY OF FAX.
[2018-02-28] MEDS: MENTHOL/CETYLPYRD (CEPACOL) 1 LOZ LOZENGE PO PRN ×3 (09:43→22:26)
--- NOTE | 2018-02-28 11:20 | NUR ---
PER DR TRENTON MENDOZA SPOKE WITH DR SCHNEIDER AND PATIENT NEEDS TO BE TRANSFERRED TO [facility]. ORDER ADDED PER . NOTIFIED MD PATIENT URINE BLOOD RED; URINE SAMPLE COLLECTED. NOTIFIED AND SHOWED DR YAO PATIENT URINE. MD WILL SEE
--- NOTE | 2018-02-28 11:24 | NUR ---
MESSAGE TO CASE MANAGEMENT NO NOTIFY OF MD ORDER FOR TX TO [facility]
[2018-02-28 12:28] LABS: APPEARANCE,URINE SL CLOUDY (CLEAR); BILIRUBIN,URINE 2+ (NEGATIVE); BLOOD, URINE 3+ Ery/uL (NEGATIVE); COLOR,URINE RED (YELLOW); KETONES,URINE TRACE (NEGATIVE); LEUKOCYTE ESTERASE ,URINE 3+ (NEGATIVE); NITRITE, URINE POSITIVE (NEGATIVE); PROTEIN,URINE 3+ mg/dl (NEGATIVE); UGLUCOSE NEGATIVE (NEGATIVE)
[2018-02-28 13:01] LABS: RBC,URINE TOO NUMEROUS TO COUN /HPF (0-2)
[2018-02-28 13:02] LABS: BACTERIA,URINE 3+ /HPF (None Seen); SQUAMOUS EPITHELIAL CELL,UR Few /HPF (None Seen); WBC,URINE 21-50 /HPF (0-3)
--- NOTE | 2018-02-28 13:17 | NUR ---
MESSAGE TO DR CHOWDHURY OF RESULTS. PATIENT RESTING COMFORTABLY.
--- NOTE | 2018-02-28 14:00 | NUR ---
dr ashford aware of patient blood in urine. per dr ashford continue heparin drip.
[2018-02-28] MEDS: HEPARIN INFUSION/D5W 500 ML IV PRN (17:09)
--- NOTE | 2018-02-28 18:31 | NUR ---
all due meds given and all needs met. patient stable. vs stable. tolerating heparin drip per protocol. patient iv sites clean dry intact and patent. patient urine yellow at this time. patient stable on 3lpm nc denies sob while in bed. increased wob with bsc and activity. patient pending transfer to [facility] and to higher level [place] [facility] case management aware. all needs assessed and met, call light in reach, safety, aspiration and skin precautions in place. will endorse care to rn for danny
--- NOTE | 2018-02-28 19:00 | NUR ---
MANAGER PERSONAL NOTES Received patient awake,alert,converses,coherent and appropriate,not in any distress but with RODRIGUEZ,easily gets short ob breath even with mild exertion and on brief flat position.With O2 via nasal cannula @ 2L/min.On Heparin drip at 1200 units /hr.No S/S of bleeding noted,no further hematuria observed.Will closely monitor for any bleeding. Comfort care done,needs attended. Patient can be downgraded to telemetry when bed available.Patient also awaiting bed in [facility] for possible cardiac cath.
[2018-03-01] VITALS (10 sets, daily range): BP systolic 102–135; BP diastolic 52–87
--- NOTE | 2018-03-01 | NUR ---
VICE PRESIDENT OF PRODUCT MARKETING NOTES Remains stable,no SOB,denies chest pain,Still on Heparin drip,no bleeding.
[2018-03-01] MEDS: ZOLPIDEM TARTRATE 5 MG TABLET PO PRN ×2 (00:35→23:26)
[2018-03-01] MEDS: hydrALAZINE HCL 50 MG TABLET PO SCH ×3 (01:04→17:45)
--- NOTE | 2018-03-01 04:00 | NUR ---
CHAUFFEUR NOTES REMAINS STABLE,AWAKE,ALERT,NO SOB,NO CHEST PAIN,NO BLEEDING NOTED. 0500 AM BLOOD WORKS DRAWN BY LAB. 0543 TRANSFERED TO TELEMETRY ROOM #312,.PATIEN TREMAINS STABLE. REPORT GIVEN TO DANIEL MONTES.
[2018-03-01 05:16] LABS: HEMATOCRIT 29 % (33-45); HEMOGLOBIN 9.7 g/dL (11.5-14.8); LYMPHOCYTES # (AUTO) 0.4 /CMM (0.8-4.8); LYMPHOCYTES % (AUTO) 5.9 % (20.0-44.0); MEAN CORPUSCULAR HEMOGLOBIN 31 PG (26.0-33.0); MEAN CORPUSCULAR HGB CONC 33 g/dl (31.0-36.0); MEAN CORPUSCULAR VOLUME 94 fL (82-100); MONOCYTES # (AUTO) 0.3 /CMM (0.1-1.30); MONOCYTES % (AUTO) 4.3 % (2.0-12.0); NEUTROPHILS # (AUTO) 6.7 /CMM (1.8-8.9); NEUTROPHILS % (AUTO) 89.8 % (43.0-81.0); PLATELET COUNT (AUTO) 249 /CMM (150-450); RDW COEFFICIENT OF VARIATION 15.8 (11.5-15.0); RED BLOOD CELL COUNT(AUTO) 3.12 MIL/uL (4.0-5.2); WHITE BLOOD COUNT (AUTO) 7.4 K/uL (4.3-11.0)
[2018-03-01 05:20] LABS: CALCIUM, SERUM 7.5 mg/dL (8.5-10.1); CREATININE 3.2 mg/dL (0.6-1.3); POTASSIUM 3.8 mmol/L (3.5-5.1)
--- NOTE | 2018-03-01 05:40 | NUR ---
APARTMENT COORDINATOR RECEIVING NOTES RECEIVED PATIENT FROM ICU VIA [employer]. PATIENT IS ALERT AND ORIENTED X3, VERBALLY RESPONSIVE, ABLE TO MAKE NEEDS KNOWN. BREATHING EVEN AND UNLABORED WITH OCCASIONAL SOB ON MILD EXERTION. ON 3L OF OXYGEN VIA NC. CURRENTLY NO COMPLAINTS OF PAIN OR DISCOMFORT. IV LINE ON RIGHT HAND @20 INTACT AND PATENT. IV ON LEFT HAND #20 INTACT AND PATENT - CURRENTLY RUNNING HEPARIN DRIP AT 1200 UNITS/HR. NO S/S OF BLEEDING. PATIENT ALSO NOTED WITH DOW CATH - INTACT AND DRAINING WELL. ALL OTHER NEEDS ATTENDED TO. EXPLAINED THE PROCESS OF ADMISSION. CALL LIGHT WITHIN REACH. BED ON LOWEST LOCKED POSITION. WILL CONTINUE TO MONITOR.
--- NOTE | 2018-03-01 07:30 | NUR ---
DIETARY CLERK OPENING NOTES Received patient asleep on left side lying position, easily arouse to stimuli. No signs of discomfort or distress noted. With patent and intact SL IV #20 @ L hand with heparin drip 1200/hr. With patent indwelling FC with clear yellow urine output. Kept clean, dry and comfortable. Will continue to monitor.
[2018-03-01] MEDS: ASPIRIN 81 MG TAB.CHEW PO SCH (08:29)
[2018-03-01] MEDS: PANTOPRAZOLE 40 MG TABLET.DR PO SCH (08:29)
[2018-03-01] MEDS: CLOPIDOGREL BISULFATE 75 MG TABLET PO SCH (08:30)
[2018-03-01] MEDS: CARVEDILOL 12.5 MG TABLET PO SCH ×2 (08:36→20:26)
[2018-03-01] MEDS: ISOSORBIDE MONONITRATE (30MG) 30 MG TAB.SR.24H PO SCH (08:45)
[2018-03-01] MEDS: Ranolazine (Ranexa) 1,000 MG PO SCH ×2 (08:50→17:00)
[2018-03-01] MEDS: HEPARIN INFUSION/D5W 500 ML IV PRN (14:59)
[2018-03-01] MEDS ORDERED: CEFTRIAXONE 1 G in IV NS 0.9% 50 ML IV SCH (16:00)
[2018-03-01] MEDS: MENTHOL/CETYLPYRD (CEPACOL) 1 LOZ LOZENGE PO PRN (17:44)
--- NOTE | 2018-03-01 18:47 | NUR ---
SECURITIES ANALYST CLOSING NOTES Patient asleep on bed easily aroused to name calling and light touch. Still on Heparin drip as ordered, IV line no s/sx of infection noted. Latest Trop I 3.[address] Graff, no new order made. No new unusalities noted. For transfer to [facility] with on going Heparin drip. Able to ambulate to toilet, performed ADLS without assistance. Ensured safety at all time. Kept clean, dry and comfortable.
--- NOTE | 2018-03-01 19:33 | NUR ---
MANUFACTURING PLANT CONTROLLER OPENING NOTES PATIENT IN BED ASLEEP, EASILY AROUSABLE TO NAME OR TOUCH. BREATHING EVEN AND UNLABORED WITH OCCASIONAL SOB ON MILD EXERTION. ON 3L OF OXYGEN VIA NC. CURRENTLY NO COMPLAINTS OF PAIN OR DISCOMFORT. IV LINE ON RIGHT HAND #20 INTACT AND PATENT. IV ON LEFT HAND #20 INTACT AND PATENT - CURRENTLY RUNNING HEPARIN DRIP AT 1200 UNITS/HR. NO S/S OF BLEEDING. PATIENT ALSO WITH DOW CATH - INTACT AND DRAINING WELL. ALL OTHER NEEDS ATTENDED TO. CALL LIGHT WITHIN REACH. BED ON LOWEST LOCKED POSITION. WILL CONTINUE TO MONITOR.
[2018-03-01] MEDS ORDERED: GUAIFENESIN LA 600 MG TABLET.SA PO SCH (21:00)
--- NOTE | 2018-03-01 23:26 | NUR ---
EXPOSURE MACHINE OPERATOR NOTES PATIENT REQUESTED FOR AMBIEN D/T INABILITY TO SLEEP. AMBIEN GIVEN. WILL REASSESS EFFECTIVENESS.
[2018-03-02] VITALS: BP 115/65
--- NOTE | 2018-03-02 00:30 | NUR ---
LAMP SHADE ASSEMBLER NOTES AMBIEN EFFECTIVE. PATIENT IS SLEEPING.
[2018-03-02] MEDS: hydrALAZINE HCL 50 MG TABLET PO SCH (01:30)
[2018-03-02 04:00] VITALS: BP 146/80
--- NOTE | 2018-03-02 06:53 | NUR ---
FOUNDRY TECHNICIAN CLOSING NOTES PATIENT RESITING IN BED. ALERT AND ORIENTED X3. VERBALLY RESPONSIVE. BREATHING EVEN AND UNLABORED WITH OCCASIONAL SOB ON MILD EXERTION. ON 3L OF OXYGEN VIA NC. CURRENTLY NO COMPLAINTS OF PAIN OR DISCOMFORT. IV LINE ON RIGHT HAND #20 INTACT AND PATENT. IV ON LEFT HAND #20 INTACT AND PATENT - CURRENTLY RUNNING HEPARIN DRIP AT 1200 UNITS/HR. NO S/S OF BLEEDING. PATIENT ALSO WITH DOW CATH - INTACT AND DRAINING WELL. SKIN DRY AND WARM TO TOUCH. KEPT CLEAN AND COMFORTABLE. ALL OTHER NEEDS ATTENDED TO. ANTICIPATING [place] [facility] @ 8:30AM. CALL LIGHT WITHIN REACH. BED ON LOWEST LOCKED POSITION. WILL ENDORSE TO ONCOMING NURSE FOR CONTINUITY FOR CARE .
[2018-03-02 07:07] LABS: BASOPHILS % (AUTO) 0.2 % (0.0-2.0); EOSINOPHILS % (AUTO) 0.4 % (0.0-6.0); HEMATOCRIT 29 % (33-45); HEMOGLOBIN 9.4 g/dL (11.5-14.8); MEAN CORPUSCULAR HEMOGLOBIN 30 PG (26.0-33.0); MEAN CORPUSCULAR HGB CONC 32 g/dl (31.0-36.0); MEAN CORPUSCULAR VOLUME 94 fL (82-100); MONOCYTES # (AUTO) 0.5 /CMM (0.1-1.30); MONOCYTES % (AUTO) 6.8 % (2.0-12.0); NEUTROPHILS # (AUTO) 5.5 /CMM (1.8-8.9); NEUTROPHILS % (AUTO) 78.6 % (43.0-81.0); PLATELET COUNT (AUTO) 235 /CMM (150-450); RDW COEFFICIENT OF VARIATION 15.3 (11.5-15.0)
--- NOTE | 2018-03-02 07:20 | NUR ---
RN NOTES PT IS LAYING DOWN IN BED, RESTING COMFORTABLY. PT ON 3L O2, RESPIRATIONS ARE EVEN AND UNLABORED. IV ON L HAND AND R HAND INTACT AND SL. LAB CALLED WITH PTT VALUE OF 99, PER PROTOCOL HEPARIN DRIP HELD FOR 60 MINUTES. DOW CATHETER IS IN PLACE AND DRAINING TO GRAVITY. TELE MONITOR SHOWS SR WITH BBB AND PVC'S, 68. NO SIGNS OF DISTRESS NOTED. SAFETY MEASURES ARE IN PLACE, CALL LIGHT IS IN REACH. WILL CONTINUE TO MONITOR.
[2018-03-02 07:27] LABS: CALCIUM, SERUM 7.5 mg/dL (8.5-10.1); CREATININE 2.9 mg/dL (0.6-1.3); POTASSIUM 3.5 mmol/L (3.5-5.1)
--- NOTE | 2018-03-02 08:10 | NUR ---
RN NOTES PT WAS TRANSFERRED TO [facility] IN STABLE CONDITION IN AMBULANCE, ACCOMPANIED BY INSOLVENCY PRACTITIONER. ALL DISCHARGE AND TRANSFER PAPERS WERE SIGNED. BELONGINGS AND HOME MEDICATIONS WERE RETURNED TO PT. WOUND DOCUMENTATION PHOTOS WERE TAKEN ON STRAIGHTENING ROLL OPERATOR. NUTRITION SPECIALIST LEADS WERE REMOVED. REPORT WAS GIVEN TO KAYLEY MONTES AT [facility] FOR CONTINUITY OF CARE.
== END 2018-03-02 08:42 | disposition short-term general hospital (02) | DRG 189 ==
LOC: ER 13:55 → ICU 16:20 → TELE 03-01 05:42
PROVIDERS: ADMIT Internal Medicine; ATTEND Internal Medicine
DX: J96.21 Acute and chronic respiratory failure with hypoxia (principal); I21.4 Non-ST elevation (NSTEMI) myocardial infarction; I50.23 Acute on chronic systolic (congestive) heart failure; E44.0 Moderate protein-calorie malnutrition; J90 Pleural effusion, not elsewhere classified; I13.0 Hypertensive heart and chronic kidney disease with heart failure and stage 1 through stage 4 chronic kidney disease, or unspecified chronic kidney disease; J44.1 Chronic obstructive pulmonary disease with (acute) exacerbation; N18.3 Chronic kidney disease, stage 3 (moderate); I11.0 Hypertensive heart disease with heart failure; I25.10 Atherosclerotic heart disease of native coronary artery without angina pectoris; Z98.61 Coronary angioplasty status; Z95.1 Presence of aortocoronary bypass graft; K21.9 Gastro-esophageal reflux disease without esophagitis; Z98.890 Other specified postprocedural states; Z79.82 Long term (current) use of aspirin; Z79.899 Other long term (current) drug therapy; F17.200 Nicotine dependence, unspecified, uncomplicated
CPT/HCPCS: 36415; 36600; 71045-TC; 80048-TC; 80053-TC; 81000-TC; 82803-TC; 83735-TC; 83880; 84100-TC; 84484-TC; 85025-TC; 85730-TC; 87086-TC; 87186-TC; 93307-TC; 94799-TC; A4216; A4606; J0696; J1642; J1644; J1940; J2270; J2930; J3490; J7030; J7050; Z7610

== ENCOUNTER 2018-11-10 00:16 | Emergency (ER) | payer MEDICAID, MEDICARE ==
[~2018-11-10] VITALS: Ht 157.5 cm; Wt 77.1 kg
[~2018-11-10 00:16] MED LIST changes: -ALBU2.5V38 IH; -MECL12.582 PO
--- NOTE | 2018-11-10 00:20 | NUR ---
PT BIBRA COMPLAINING OF CHEST PAIN, 04/10 NON RADIATING X 4 HOURS. PT STATES SHE VOMITTED EARLIER TODAY. PT AXO4. RESPIRATIONS EVEN AND UNLABORED. PT PUT ON THE MOTOR VEHICLE PARTS INTERPRETER AND PULSE OX. PENDING EVAL FROM ER .
--- NOTE | 2018-11-10 00:33 | NUR ---
ASSET PROTECTION OFFICER AT BEDSIDE. LABS SENT.
--- NOTE | 2018-11-10 00:37 | NUR ---
EKG AT BEDSIDE.
[2018-11-10 00:42] LABS: BASOPHILS % (AUTO) 0.6 % (0.0-2.0); EOSINOPHILS % (AUTO) 1.5 % (0.0-6.0); HEMATOCRIT 33 % (33-45); HEMOGLOBIN 11.1 g/dL (11.5-14.8); LYMPHOCYTES # (AUTO) 0.7 /CMM (0.8-4.8); LYMPHOCYTES % (AUTO) 8.3 % (20.0-44.0); MEAN CORPUSCULAR HGB CONC 33 g/dl (31.0-36.0); MEAN CORPUSCULAR VOLUME 84 fL (82-100); MONOCYTES # (AUTO) 0.4 /CMM (0.1-1.30); MONOCYTES % (AUTO) 5.1 % (2.0-12.0); NEUTROPHILS # (AUTO) 7.2 /CMM (1.8-8.9); NEUTROPHILS % (AUTO) 84.5 % (43.0-81.0); PLATELET COUNT (AUTO) 241 /CMM (150-450); RED BLOOD CELL COUNT(AUTO) 3.94 MIL/uL (4.0-5.2); WHITE BLOOD COUNT (AUTO) 8.5 K/uL (4.3-11.0)
--- NOTE | 2018-11-10 00:47 | NUR ---
XRAY AT BEDSIDE.
[2018-11-10 00:48] LABS: CALCIUM, SERUM 8.5 mg/dL (8.5-10.1); CREATININE 2.5 mg/dL (0.6-1.3); POTASSIUM 3.6 mmol/L (3.5-5.1)
[2018-11-10 01:01] LABS: ALBUMIN 3.6 g/dL (3.4-5.0); BILIRUBIN,DIRECT 0.1 mg/dL (0.0-0.2); BILIRUBIN,TOTAL 0.3 mg/dL (0.2-1.0); TOTAL PROTEIN, SERUM 7.5 g/dL (6.4-8.2)
[2018-11-10] MEDS ORDERED: FUROSEMIDE 40 MG/4 ML VIAL ONE (01:38)
[2018-11-10] MEDS ORDERED: ASPIRIN 81 MG TAB.CHEW ONE (01:38)
[2018-11-10] MEDS ORDERED: NITROGLYCERIN PACKET 1 GM PACKET ONE (01:38)
--- NOTE | 2018-11-10 01:38 | NUR ---
ROOM 259 ICU.
[2018-11-10] MEDS ORDERED: ASPIRIN 81 MG TAB.CHEW PO ONE (02:00)
[2018-11-10] MEDS ORDERED: NITROGLYCERIN PACKET 1 GM PACKET TOP ONE (02:00)
[2018-11-10] MEDS ORDERED: FUROSEMIDE 40 MG/4 ML VIAL IV ONE (02:00)
[2018-11-10] MEDS ORDERED: EZET10TA14 PO (02:46)
[2018-11-10] MEDS ORDERED: CARV25TA2 PO (02:46)
[2018-11-10] MEDS ORDERED: FURO80TA3 PO (02:46)
[2018-11-10] MEDS ORDERED: ASPI-1169 PO (02:46)
[2018-11-10] MEDS ORDERED: ZOLP5TAB8 PO (02:46)
[2018-11-10] MEDS ORDERED: OMEP40CA37 PO (02:46)
[2018-11-10] MEDS ORDERED: AURYXIA PO (02:46)
[2018-11-10] MEDS ORDERED: RANO500T3 PO (02:46)
--- NOTE | 2018-11-10 03:33 | NUR ---
Pt resting in bed comfortably, NAD noted. Will continue to monitor.
--- NOTE | 2018-11-10 04:35 | NUR ---
ACCEPTED TO [facility]. HOST HOSTESS WILL CALL WITH ROOM NUMBER.
--- NOTE | 2018-11-10 05:13 | NUR ---
CLINICAL INFORMATION SENT TO [facility] PER FAMILY REUNIFICATION SPECIALIST REQUEST
--- NOTE | 2018-11-10 05:19 | NUR ---
COMMERCIAL PEST CONTROL REPRESENTATIVE MAE :([phone]
--- NOTE | 2018-11-10 06:32 | NUR ---
PT RESTING IN BED COMFORTABLY, NAD NOTED. WILL CONTINUE TO MONITOR.
--- NOTE | 2018-11-10 07:25 | NUR ---
RECEIVED CALL FROM AKILAH THEY STILL LOOKING FOR ROOM IN [place], WILL CALL BACK FOR ROOM ASSIGMENT.
--- NOTE | 2018-11-10 07:32 | NUR ---
REPORT RECEIVED FROM ISMAEL MONTES FOR [facility]
--- NOTE | 2018-11-10 08:30 | NUR ---
TRANSFER INFO: [facility] ROOM 541A NUMBER FOR REPORT: [phone], PENDING TRANSPORT INFO.
--- NOTE | 2018-11-10 08:46 | NUR ---
REPORT GIVEN TO CELESTINA MONTES (TELE UNIT) OF [facility]. DIRECT PHONE: [phone]; ETA OF TRANSPORTATION PENDING
--- NOTE | 2018-11-10 09:23 | NUR ---
TRANSPORT AMBULANCE DIRECTOR GROUP SALES ETA [address]INS[address] [facility]: [phone]
[2018-11-10 10:19] VITALS: BP 135/79
--- NOTE | 2018-11-10 10:20 | NUR ---
Patient discharged [facility] Unit [facility] in stable condition. Written and verbal after care instructions given. Patient verbalizes understanding of instruction. Pt will be transferred to [facility].
== END 2018-11-10 10:23 | disposition short-term general hospital (02) ==
LOC: ER 00:18
DX: I21.4 Non-ST elevation (NSTEMI) myocardial infarction (principal); N18.9 Chronic kidney disease, unspecified; I13.0 Hypertensive heart and chronic kidney disease with heart failure and stage 1 through stage 4 chronic kidney disease, or unspecified chronic kidney disease; K21.9 Gastro-esophageal reflux disease without esophagitis; I25.10 Atherosclerotic heart disease of native coronary artery without angina pectoris; E78.5 Hyperlipidemia, unspecified; J44.9 Chronic obstructive pulmonary disease, unspecified; F17.200 Nicotine dependence, unspecified, uncomplicated; Z95.0 Presence of cardiac pacemaker; Z95.5 Presence of coronary angioplasty implant and graft; Z98.890 Other specified postprocedural states; Z60.2 Problems related to living alone; Z79.82 Long term (current) use of aspirin
CPT/HCPCS: 36415; 71045; 80048; 80076; 83880; 84484; 85025; 87081; 93005; 96374; 99291; J1940

== ENCOUNTER 2023-03-08 17:51 | Emergency (ER) | payer MEDICARE, OTHER ==
[~2023-03-08] VITALS: Ht 165.1 cm; Wt 72.6 kg
[~2023-03-08 17:51] MED LIST changes: +AURYXIA PO; +EZET10TA16 PO; +FURO80TA3 PO; +OMEP40CA21 PO; +ZOLP5TAB8 PO
[2023-03-08 18:58] LABS: BASOPHILS # (AUTO) 0.1 K/uL (0.0-0.2); BASOPHILS % (AUTO) 1.3 % (0.0-2.0); EOSINOPHILS # (AUTO) 0.2 K/uL (0.0-0.7); EOSINOPHILS % (AUTO) 3.2 % (0.0-6.0); HEMATOCRIT 36 % (33-45); LYMPHOCYTES # (AUTO) 0.9 K/uL (0.8-4.8); MEAN CORPUSCULAR HEMOGLOBIN 30 PG (26.0-33.0); MEAN CORPUSCULAR HGB CONC 33 g/dl (31.0-36.0); MEAN CORPUSCULAR VOLUME 90 fL (82-100); MONOCYTES # (AUTO) 0.4 K/uL (0.1-1.30); MONOCYTES % (AUTO) 7.4 % (2.0-12.0); NEUTROPHILS # (AUTO) 3.6 K/uL (1.8-8.9); NEUTROPHILS % (AUTO) 70.1 % (43.0-81.0); PLATELET COUNT (AUTO) 232 K/uL (150-450); RED BLOOD CELL COUNT(AUTO) 4.01 MIL/uL (4.0-5.2); RED CELL DISTRIBUTION WIDTH 13.5 % (11.5-15.0); WHITE BLOOD COUNT (AUTO) 5.2 K/uL (4.3-11.0)
[2023-03-08 19:18] LABS: CARBON DIOXIDE 27 mmol/L (21-32); CHLORIDE 96 mmol/L (98-107); CREATININE 3.4 mg/dL (0.6-1.3); GLUCOSE 129 mg/dL (74-106); POTASSIUM 3.8 mmol/L (3.5-5.1); SODIUM SERUM 134 mmol/L (136-145)
[2023-03-08 19:26] LABS: INR 0.93 (0.91-1.10); PARTIAL THROMBOPLASTIN TIME 22.4 SEC (24.3-34.3); PROTHROMBIN TIME 9.8 SECS (9.2-11.1)
[2023-03-08 19:27] LABS: UREA NITROGEN, BLOOD 105 mg/dL (7-18)
[2023-03-08 19:51] LABS: ALANINE AMINOTRANSFERASE 21 U/L (12-78); ALBUMIN 3.7 g/dL (3.4-5.0); ALKALINE PHOSPHATASE 81 U/L (46-116); ASPARTATE AMINOTRANSFERASE 17 U/L (15-37); BILIRUBIN,DIRECT 0.1 mg/dL (0.0-0.2); BILIRUBIN,TOTAL 0.3 mg/dL (0.2-1.0); NT-PRO BNP 6142 pg/mL (0-125); TOTAL PROTEIN, SERUM 7.7 g/dL (6.4-8.2)
[2023-03-08 20:21] VITALS: BP 126/76; TEMP 98.1; O2SAT 98
[2023-03-08] MEDS ORDERED: MAGNESIUM HYDROXIDE 30 ML UDC PO PRN (21:00)
[2023-03-08] MEDS ORDERED: ONDANSETRON HCL/PF 4 MG/2 ML VIAL IVP PRN (21:00)
[2023-03-08] MEDS ORDERED: ACETAMINOPHEN 325 MG TABLET PO PRN (21:00)
[2023-03-08] MEDS ORDERED: MAG HYDROX/AL HYDROX/SIMETH 30 ML UDC PO PRN (21:00)
[2023-03-08] MEDS ORDERED: ZOLPIDEM TARTRATE 5 MG TABLET PO PRN (21:00)
[2023-03-08] MEDS ORDERED: Z GUARD REMEDY 4 OZ OINT TP PRN (21:00)
[2023-03-09] MEDS ORDERED: ASPIRIN 81 MG TAB.CHEW PO SCH (09:00)
== END 2023-03-08 20:21 | disposition left against medical advice (07) ==
LOC: ER 17:53
DX: I21.4 Non-ST elevation (NSTEMI) myocardial infarction (principal); R07.89 Other chest pain; I13.0 Hypertensive heart and chronic kidney disease with heart failure and stage 1 through stage 4 chronic kidney disease, or unspecified chronic kidney disease; N18.9 Chronic kidney disease, unspecified; I50.9 Heart failure, unspecified; K21.9 Gastro-esophageal reflux disease without esophagitis; F17.200 Nicotine dependence, unspecified, uncomplicated; Z90.89 Acquired absence of other organs; Z90.710 Acquired absence of both cervix and uterus; Z60.2 Problems related to living alone; Z79.899 Other long term (current) drug therapy
CPT/HCPCS: 36415; 71045-TC; 80048-TC; 80076-TC; 83880; 84484-TC; 85025-TC; 85730-TC

== ENCOUNTER 2024-10-15 11:54 | Inpatient (IN) | payer MEDICARE, OTHER ==
[2024-10-15] VITALS (17 sets, daily range): BP systolic 87–132; BP diastolic 43–94; TEMP 98; O2SAT 92–99
[~2024-10-15] VITALS: Ht 160 cm; Wt 78.0 kg
[2024-10-15] MEDS: IV NS 0.9% 500 ML BAG IV ONE (11:45)
[2024-10-15] MEDS ORDERED: NOREPINEPHRINE 8MG/250ML RTU 250 ML IV ONE (12:16)
[2024-10-15] MEDS: NOREPINEPHRINE 8 MG in IV NS 0.9% 250 ML IV ONE (12:24)
[2024-10-15 12:29] LABS: BASOPHILS % (AUTO) 0.8 % (0.0-2.0); EOSINOPHILS # (AUTO) 0.1 K/uL (0.0-0.7); EOSINOPHILS % (AUTO) 1.2 % (0.0-6.0); HEMATOCRIT 34 % (33-45); HEMOGLOBIN 11.1 g/dL (11.5-14.8); LYMPHOCYTES # (AUTO) 0.7 K/uL (0.8-4.8); LYMPHOCYTES % (AUTO) 11.7 % (20.0-44.0); MEAN CORPUSCULAR HEMOGLOBIN 32 PG (26.0-33.0); MEAN CORPUSCULAR HGB CONC 33 g/dl (31.0-36.0); MEAN CORPUSCULAR VOLUME 95 fL (82-100); MONOCYTES # (AUTO) 0.4 K/uL (0.1-1.30); MONOCYTES % (AUTO) 6.1 % (2.0-12.0); NEUTROPHILS # (AUTO) 4.7 K/uL (1.8-8.9); NEUTROPHILS % (AUTO) 80.2 % (43.0-81.0); PLATELET COUNT (AUTO) 199 K/uL (150-450); RED BLOOD CELL COUNT(AUTO) 3.52 MIL/uL (4.0-5.2); RED CELL DISTRIBUTION WIDTH 16.7 % (11.5-15.0); WHITE BLOOD COUNT (AUTO) 5.9 K/uL (4.3-11.0)
[2024-10-15 13:00] LABS: INR 1.03 (0.91-1.10); PARTIAL THROMBOPLASTIN TIME 25.9 SEC (24.3-34.3); PROTHROMBIN TIME 10.9 SECS (9.2-11.1)
[2024-10-15 13:02] LABS: MAGNESIUM 2.7 mg/dL (1.8-2.4); PHOSPHORUS 6.7 mg/dL (2.5-4.9)
[2024-10-15 13:04] LABS: ACETAMINOPHEN < 10 ug/ml (10-30); ALANINE AMINOTRANSFERASE 12 U/L (12-78); ALBUMIN 2.9 g/dL (3.4-5.0); ALCOHOL, BLOOD < 3 mg/dL (0-10); ALKALINE PHOSPHATASE 113 U/L (46-116); ASPARTATE AMINOTRANSFERASE 27 U/L (15-37); BILIRUBIN,DIRECT 0.2 mg/dL (0.0-0.2); BILIRUBIN,TOTAL 0.4 mg/dL (0.2-1.0); CALCIUM, SERUM 8.1 mg/dL (8.5-10.1); CARBON DIOXIDE 17 mmol/L (21-32); CHLORIDE 100 mmol/L (98-107); CREATININE 5.7 mg/dL (0.6-1.3); GLUCOSE 120 mg/dL (74-106); POTASSIUM 5.5 mmol/L (3.5-5.1); SODIUM SERUM 131 mmol/L (136-145); TOTAL PROTEIN, SERUM 6.2 g/dL (6.4-8.2)
[2024-10-15 13:06] LABS: LACTIC ACID 1.8 mmol/L (0.4-2.0)
[2024-10-15 13:10] LABS: SALICYLATE 1.6 mg/dL (2.8-20.0)
[2024-10-15 13:11] LABS: UREA NITROGEN, BLOOD 87 mg/dL (7-18)
[2024-10-15] MEDS ORDERED: NITR0.4T48 SL (13:24)
[2024-10-15] MEDS ORDERED: CALC0.253 PO (13:24)
[2024-10-15] MEDS ORDERED: CARV3.122 PO (13:24)
[2024-10-15] MEDS ORDERED: TORS20TA3 PO (13:24)
[2024-10-15] MEDS ORDERED: SACU1TAB PO (13:24)
[2024-10-15] MEDS ORDERED: OXYB5TAB16 PO (13:24)
[2024-10-15] MEDS ORDERED: DAPA10TA PO (13:24)
[2024-10-15] MEDS ORDERED: MONT10TA22 PO (13:24)
[2024-10-15] MEDS ORDERED: [UNRECOGNIZED DRUG - CODE] PO (13:24)
[2024-10-15] MEDS ORDERED: GABA300C PO (13:24)
[2024-10-15] MEDS ORDERED: EVOL140P3 SQ (13:24)
[2024-10-15] MEDS ORDERED: ASPI-1420 PO (13:24)
[2024-10-15] MEDS ORDERED: DEXL60CA3 PO (13:24)
[2024-10-15] MEDS ORDERED: ROSU40TA23 PO (13:24)
[2024-10-15] MEDS ORDERED: FERR325T24 PO (13:24)
[2024-10-15] MEDS ORDERED: ONDA-97 PO (13:25)
[2024-10-15] MEDS ORDERED: MORPHINE SULFATE INJ 2 MG/ML DISP.SYRIN IV PRN (13:30)
[2024-10-15] MEDS ORDERED: ACETAMINOPHEN 325 MG TABLET PO PRN (13:30)
[2024-10-15] MEDS ORDERED: ASPIRIN EC 325 MG TABLET.DR PO ONE (15:40)
[2024-10-15] MEDS: ASPIRIN EC 325 MG TABLET.DR PO ONE (15:46)
[2024-10-15] MEDS: CEFEPIME 1 GM in IV D5W 50 ML IV ONE (16:16)
[2024-10-15] MEDS: VANCOMYCIN 1 GM in IV D5W 250 ML IV ONE (16:52)
[2024-10-15] MEDS ORDERED: FUROSEMIDE 80 MG TABLET PO SCH (17:00)
[2024-10-15] MEDS ORDERED: GABAPENTIN 300 MG CAPSULE PO SCH (17:00)
[2024-10-15] MEDS ORDERED: RANOLAZINE 500 MG TAB.ER.12H PO SCH (17:00)
[2024-10-15] MEDS ORDERED: FUROSEMIDE 40 MG TABLET PO SCH (17:35)
[2024-10-15] MEDS: NOREPINEPHRINE 8 MG in IV D5W 242 ML IV PRN (18:51)
[2024-10-15] MEDS: IPRATROPIUM NEB FS 0.5 MG/2.5 ML AMPUL.NEB NEB SCH (19:30)
[2024-10-15] MEDS: ALBUTEROL FS 2.5 MG/0.5 ML VIAL.NEB NEB SCH (19:30)
[2024-10-15] MEDS: HYDROCODONE/APAP 5/325MG TABLET PO PRN (20:01)
[2024-10-15] MEDS: HEPARIN SODIUM, PORCINE 5000 UNITS/1 ML VIAL IV ONE (20:19)
[2024-10-15] MEDS: HEPARIN INFUSION/D5W 500 ML IV PRN (20:27)
[2024-10-15] MEDS ORDERED: HEPARIN SODIUM, PORCINE 5000 UNITS/1 ML VIAL SQ SCH (21:00)
[2024-10-15] MEDS: FUROSEMIDE 40 MG TABLET PO SCH (21:51)
[2024-10-15] MEDS: GABAPENTIN 300 MG CAPSULE PO SCH (21:52)
[2024-10-15] MEDS: RANOLAZINE 500 MG TAB.ER.12H PO SCH (21:54)
[2024-10-15] MEDS: ALBUTEROL FS 2.5 MG/0.5 ML VIAL.NEB NEB PRN (22:29)
[2024-10-15] MEDS: ATORVASTATIN 40 MG TABLET PO SCH (23:06)
[2024-10-16] VITALS (102 sets, daily range): BP systolic 60–142; BP diastolic 26–126; TEMP 97.7–98.8; O2SAT 51–100
[2024-10-16 02:37] LABS: BASOPHILS # (AUTO) 0.1 K/uL (0.0-0.2); EOSINOPHILS # (AUTO) 0.1 K/uL (0.0-0.7); EOSINOPHILS % (AUTO) 1.4 % (0.0-6.0); HEMATOCRIT 37 % (33-45); HEMOGLOBIN 12.1 g/dL (11.5-14.8); LYMPHOCYTES # (AUTO) 1.2 K/uL (0.8-4.8); LYMPHOCYTES % (AUTO) 14.6 % (20.0-44.0); MEAN CORPUSCULAR HEMOGLOBIN 31 PG (26.0-33.0); MEAN CORPUSCULAR HGB CONC 33 g/dl (31.0-36.0); MEAN CORPUSCULAR VOLUME 95 fL (82-100); MONOCYTES % (AUTO) 11.8 % (2.0-12.0); NEUTROPHILS # (AUTO) 5.9 K/uL (1.8-8.9); NEUTROPHILS % (AUTO) 71.2 % (43.0-81.0); PLATELET COUNT (AUTO) 232 K/uL (150-450); RED BLOOD CELL COUNT(AUTO) 3.86 MIL/uL (4.0-5.2); RED CELL DISTRIBUTION WIDTH 16.6 % (11.5-15.0); WHITE BLOOD COUNT (AUTO) 8.2 K/uL (4.3-11.0)
[2024-10-16 03:00] LABS: ALBUMIN 3.1 g/dL (3.4-5.0); BILIRUBIN,TOTAL 0.5 mg/dL (0.2-1.0); CALCIUM, SERUM 8.4 mg/dL (8.5-10.1); CREATININE 6.2 mg/dL (0.6-1.3); MAGNESIUM 2.6 mg/dL (1.8-2.4); PHOSPHORUS 7.4 mg/dL (2.5-4.9); TOTAL PROTEIN, SERUM 6.5 g/dL (6.4-8.2)
[2024-10-16] MEDS ORDERED: SACUBITRIL/VALSARTAN 24/26MG TABLET PO SCH ×2 (09:00)
[2024-10-16] MEDS: OXYBUTYNIN CHLORIDE 5 MG TABLET PO SCH (09:10)
[2024-10-16] MEDS: MONTELUKAST SODIUM (10MG) 10 MG TABLET PO SCH (09:10)
[2024-10-16] MEDS: DAPAGLIFLOZIN PROPANEDIOL 10 MG TABLET PO SCH (09:10)
[2024-10-16] MEDS: CALCITRIOL 0.25 MCG CAPSULE PO SCH (09:11)
[2024-10-16] MEDS: CLOPIDOGREL BISULFATE 300 MG TABLET PO ONE (09:53)
[2024-10-16] MEDS: ASPIRIN 81 MG TAB.CHEW PO SCH (09:53)
[2024-10-16 10:12] LABS: CHOLESTEROL 172 mg/dL (<200); HDL CHOLESTEROL 52 mg/dL (40-60); LDL 111 mg/dL (0-99); TRIGLYCERIDES 89 mg/dL (30-150)
[2024-10-16] MEDS: AMIODARONE 150 MG in IV D5W 100 ML IV ONE (18:16)
[2024-10-16] MEDS: PHENYLEPHRINE 50 MG in IV NS 0.9% 245 ML IV PRN (18:17)
[2024-10-16] MEDS: AMIODARONE 450 MG in IV D5W 241 ML IV PRN (18:18)
[2024-10-16] MEDS: ONDANSETRON HCL/PF 4 MG/2 ML VIAL IVP PRN (23:16)
[2024-10-17] VITALS (24 sets, daily range): BP systolic 85–126; BP diastolic 25–83; TEMP 98–98.5; O2SAT 79–100
[2024-10-17 04:26] LABS: BASOPHILS % (AUTO) 0.5 % (0.0-2.0); HEMATOCRIT 38 % (33-45); HEMOGLOBIN 12.5 g/dL (11.5-14.8); LYMPHOCYTES # (AUTO) 0.7 K/uL (0.8-4.8); LYMPHOCYTES % (AUTO) 7.5 % (20.0-44.0); MEAN CORPUSCULAR HEMOGLOBIN 32 PG (26.0-33.0); MEAN CORPUSCULAR HGB CONC 33 g/dl (31.0-36.0); MEAN CORPUSCULAR VOLUME 97 fL (82-100); MONOCYTES # (AUTO) 0.5 K/uL (0.1-1.30); MONOCYTES % (AUTO) 5.9 % (2.0-12.0); NEUTROPHILS # (AUTO) 7.6 K/uL (1.8-8.9); NEUTROPHILS % (AUTO) 86.1 % (43.0-81.0); PLATELET COUNT (AUTO) 140 K/uL (150-450); RED BLOOD CELL COUNT(AUTO) 3.91 MIL/uL (4.0-5.2); RED CELL DISTRIBUTION WIDTH 17.7 % (11.5-15.0); WHITE BLOOD COUNT (AUTO) 8.8 K/uL (4.3-11.0)
[2024-10-17 04:54] LABS: ALBUMIN 3.2 g/dL (3.4-5.0); CALCIUM, SERUM 8.6 mg/dL (8.5-10.1); MAGNESIUM 2.7 mg/dL (1.8-2.4); POTASSIUM 5.8 mmol/L (3.5-5.1); TOTAL PROTEIN, SERUM 6.6 g/dL (6.4-8.2)
[2024-10-17 05:29] LABS: PHOSPHORUS 9.3 mg/dL (2.5-4.9)
[2024-10-17] MEDS ORDERED: EPINEPHRINE (1:10,000) SYRINGE 1 MG/10 ML DISP.SYRIN IVP ONE (08:44)
[2024-10-17] MEDS ORDERED: CLOPIDOGREL BISULFATE 75 MG TABLET PO SCH (09:00)
[2024-10-17] MEDS ORDERED: CEFEPIME 1 GM in IV D5W 50 ML IV SCH (10:00)
[2024-10-18 03:07] LABS: HEPATITIS B CORE AB, TOTAL Positive (Negative); HEPATITIS B SURFACE AB Reactive (.)
== END 2024-10-17 08:37 ==
LOC: ER 11:56 → ICU 17:10
PROVIDERS: ADMIT Internal Medicine; ATTEND Nurse Practitioner Acute Care
PROC: 05HC33Z Insertion of Infusion Device into Left Basilic Vein, Percutaneous Approach (ICD-10-PCS; 2024-10-15)
PROC: 5A1D70Z Performance of Urinary Filtration, Intermittent, Less than 6 Hours Per Day (ICD-10-PCS; principal; 2024-10-16)
PROC: 5A12012 Performance of Cardiac Output, Single, Manual (ICD-10-PCS; 2024-10-17)
PROC: 0BH17EZ Insertion of Endotracheal Airway into Trachea, Via Natural or Artificial Opening (ICD-10-PCS; 2024-10-17)
DX: I21.4 Non-ST elevation (NSTEMI) myocardial infarction (principal); J96.01 Acute respiratory failure with hypoxia; N18.6 End stage renal disease; I13.2 Hypertensive heart and chronic kidney disease with heart failure and with stage 5 chronic kidney disease, or end stage renal disease; E87.1 Hypo-osmolality and hyponatremia; R57.0 Cardiogenic shock; I50.9 Heart failure, unspecified; E87.5 Hyperkalemia; I25.10 Atherosclerotic heart disease of native coronary artery without angina pectoris; Z95.5 Presence of coronary angioplasty implant and graft; Z99.2 Dependence on renal dialysis; Z95.810 Presence of automatic (implantable) cardiac defibrillator; Z95.1 Presence of aortocoronary bypass graft; J44.9 Chronic obstructive pulmonary disease, unspecified; E78.5 Hyperlipidemia, unspecified; D63.8 Anemia in other chronic diseases classified elsewhere; Z79.82 Long term (current) use of aspirin; Z79.899 Other long term (current) drug therapy; Z90.710 Acquired absence of both cervix and uterus; Z98.890 Other specified postprocedural states; Z90.49 Acquired absence of other specified parts of digestive tract; F17.200 Nicotine dependence, unspecified, uncomplicated; I25.2 Old myocardial infarction; I25.5 Ischemic cardiomyopathy; Z91.199 Patient's noncompliance with other medical treatment and regimen due to unspecified reason; N25.0 Renal osteodystrophy; I21.A1 Myocardial infarction type 2
CPT/HCPCS: 31720; 36410; 36415; 70450-TC; 71045-TC; 80048-TC; 80053-TC; 80061-TC; 80076-TC; 82533; 82962-TC; 83605-TC; 83735-TC; 84100-TC; 84443-TC; 84484-TC; 85025-TC; 85730-TC; 86704; 86706; 87040-TC; 87340; 90935-TC; 92950-TC; 93307-TC; 94799-TC; A4223; G0378; G0480; J0171; J0282; J0692; J1644; J2405; J3370; J7050; J7060